=== PATIENT | male | born 1955 | race Caucasian/White ===

== ENCOUNTER 2021-02-14 01:38 | Observation (INO) | payer MEDICARE, MEDICAID, SELFPAY ==
[2021-02-14] VITALS (7 sets, daily range): BP systolic 123–138; BP diastolic 76–87; PULSE 51–80; RESP 16–20; TEMP 36.1–36.9; O2SAT 96–100
--- NOTE | ~2021-02-14 | CT_ITS ---
EXAMINATION: CT chest abdomen pelvis w con DATE: 02/14/2021 02:47 INDICATION: Right chest pain. Fall. TECHNIQUE: Computed tomography (CT) of the chest, abdomen, and pelvis was performed with 100 mL Omnip aque 350 intravenous contrast. Automated exposure control and iterative reconstruction technique were employed. The dose-length product was 601.56 mGy-cm. COMPARISON: None FINDINGS: CHEST CT: The lungs demonstrate mild atelectasis. There are multiple old right rib fractures. Motion artifact d ecreases sensitivity and specificity for superimposed acute rib fracture. In the right lower lobe at the pleura abutting old rib fractures, there are airspace opacities, likely rounded atelectasis. No p leural effusion. The heart size is normal. There are coronary artery calcifications. There is a 3.1 x 2.2 cm pericardial cyst in the left infrahilar region. ABDOMEN/PELVIS CT: The liver, gallbladder, and spleen are normal. 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 The pancreatic d uct is mildly dilated. The common duct is dilated to 8 mm. There are masses in the adrenal glands rinku suring up to 4.2 cm on the right measuring soft tissue attenuation. There is cortical thinning of the kidneys. There are cysts in the kidneys measuring up to 4.8 cm on the right. There are no dilated lo ops of bowel. The appendix is not visualized. There are no pathologically enlarged lymph nodes. There is no free intraperitoneal fluid. There is mild lumbar spondylosis. IMPRESSION: 1. Airspace opacities in right lung lower lobe abutting old rib fractures, likely rounded atelectasis . Contusion is less likely. Motion artifact decreases sensitivity and specificity for acute rib fract ure. 2. Mildly dilated common duct and pancreatic duct without visible obstruction. Consider MRCP. 3. Bilateral adrenal masses measuring up to 4.2 cm on the right. In the absence of known malignancy, these findings are most likely adenomas. Abdomen CT without and with contrast is recommended. Reviewed, dictated and finalized at location A. IMPRESSION: 1. Airspace opacities in right lung lower lobe abutting old rib fractures, like ly rounded atelectasis. Contusion is less likely. Motion artifact decreases sen sitivity and specificity for acute rib fracture. 2. Mildly dilated common duct and pancreatic duct without visible obstruction. Consider MRCP. 3. Bilateral adrenal masses measuring up to 4.2 cm on the right. In the absence of known malignancy, these findings are most likely adenomas. Abdomen CT witho ut and with contrast is recommended.
--- NOTE | 2021-02-14 01:46 | PC.NURSE ---
i called [facility] to get information about the patient. the nurse that was taking care of him states that she does not know of any injury. he has been complaining of the pain since approx 1600. no other information.
--- NOTE | 2021-02-14 02:08 | ED.GENADULT ---
HPI - General Adult General Chief complaint: Unspecified Stated complaint: rib pain Time Seen by Provider: 02/14/21 01:40 History of Present Illness HPI narrative: Patient is a 65-year-old gentleman who presents the emergency department chief complaint of right-sided chest and right upper quadrant pain. Patient had a unknown trauma occurred at the [facility] and was complaining of pain in his right side of his chest and his right upper quadrant today they did a plain film x-ray of his chest that showed old rib fractures may be acute rib fractures and the patient continued to have pain so they decided to send the patient to the emergency department this evening for evaluation. Patient reports he has pain on the right side of his chest worse with inspiration it is improved with rest. Patient states that he had no head injury denies neck pain denies pain in any extremity. Related Data Allergies Allergy/AdvReac Type Severity Reaction Status Date / Time No Known Allergies Allergy Verified 09/20/18 09:58 Review of Systems Review of Systems: Narrative: A 10 system review of systems was completed on the patient and is negative except for what is stated in the HPI. Nursing and ancillary documentation was reviewed. PMFSH Comments Patient is a resident of an extended care facility Patient reports prior history of traumatic subdural hematoma and seizure disorder hypertension dysarthria hernia dysphagia cognitive communication deficit and bipolar disorder Exam Narrative: Exam Narrative: GENERAL: Well-appearing, well-nourished, and in no acute distress. HEAD: Normocephalic, atraumatic. EYES: PERRLA and EOMI. ENT: Nares clear, no rhinorrhea or epistaxis. Mucous membranes moist. NECK: Supple. CHEST: Clear to auscultation. No respiratory distress. There is tenderness to palpation on the right anterior chest wall HEART: Regular rate and rhythm. No murmur heard. Normal peripheral pulses. ABDOMEN: Soft, there is tenderness to palpation in the right upper quadrant, nondistended, normal active bowel sounds. EXTREMITIES: Normal range of motion. No edema. SKIN: Warm, dry, no rash. NEURO: No focal deficits. Alert and oriented x3. PSYCH: Normal mood and affect. Course Course Emergency Course: CT scan of the chest abdomen pelvis showed a posterior lateral seventh and eighth rib fracture with a small localized density structure which could represent pleural fluid versus hematoma. The case was discussed with Dr. Trinidad who is on-call for general surgery who will be available for consultation The case was discussed with Dr. Cornejo of the hospitalist service, and the patient will be admitted to the hospitalist service Vital Signs Vital signs: Vital Signs Temperature 36.6 C 02/14/21 01:41 Pulse Rate 59 L 02/14/21 01:41 Respiratory Rate 16 02/14/21 01:41 Blood Pressure 124/84 02/14/21 01:41 Pulse Oximetry 100 02/14/21 01:41 Temperature 36.6 C 02/14/21 01:41 Pulse Rate 61 02/14/21 04:16 Respiratory Rate 16 02/14/21 04:16 Blood Pressure 138/84 02/14/21 04:16 Pulse Oximetry 100 02/14/21 04:16 Medical Decision Making Vital Signs Vital Signs: Vital Signs Temperature 36.6 C 02/14/21 01:41 Pulse Rate 59 L 02/14/21 01:41 Respiratory Rate 16 02/14/21 01:41 Blood Pressure 124/84 02/14/21 01:41 Pulse Oximetry 100 02/14/21 01:41 Temperature 36.6 C 02/14/21 01:41 Pulse Rate 61 02/14/21 04:16 Respiratory Rate 16 02/14/21 04:16 Blood Pressure 138/84 02/14/21 04:16 Pulse Oximetry 100 02/14/21 04:16 Lab Data Result diagrams: 02/14/21 02:25 02/14/21 02:37 Labs: Lab Results 02/14/21 02/14/21 02/14/21 Range/Units 02:25 02:25 02:37 WBC 7.9 (4.5-10.0) K/mm3 RBC 3.62 L (4.6-6.20) M/mm3 Hgb 11.7 L (14.0-18.0) g/dL Hct 34.4 L (42.0-52.0) % MCV 95.0 (80-100) fl MCH 32.3 (26-34) pg MCHC 34.0 (32-36) g/dl RDW 1
[2021-02-14 02:44] LABS: Basophils Absolute Auto 0.1 K/mm3 (0.0-0.1); Basophils Percent Auto 0.6 % (0.2-1.2); Eosinophils Absolute Auto 0.3 K/mm3 (0-0.3); Eosinophils Percent Auto 3.3 % (0-4.4); Hematocrit 34.4 % (42.0-52.0); Hemoglobin 11.7 g/dL (14.0-18.0); Immature Granulocyte Absolute 0.01 K/mm3 (0.00-0.031); Immature Granulocyte Percent A 0.1 % (0-0.5); Lymphocytes Absolute Auto 3.64 K/mm3 (0.9-3.2); Lymphocytes Percent Auto 45.9 % (18.3-44.2); Mean Corpuscular Hemoglobin 32.3 pg (26-34); Mean Platelet Volume 9.8 fl (7.4-10.4); Monocytes Absolute Auto 0.8 K/mm3 (0.1-0.6); Monocytes Percent Auto 10.1 % (2.6-8.5); Neutrophils Absolute Auto 3.2 K/mm3 (1.3-6.7); Platelet Count Result 355 k/mm3 (150-375); Red Blood Count 3.62 M/mm3 (4.6-6.20); Red Cell Distribution Width 13.4 % (11.5-14.5); White Blood Count 7.9 K/mm3 (4.5-10.0)
[2021-02-14 02:46] LABS: Alanine Aminotransferase 21 U/L (4-50); Albumin Level 4.1 g/dL (3.5-5.1); Alkaline Phosphatase 53 U/L (38-126); Anion Gap 4 mmol/L (8-16); Aspartate Amino Transferase 25 U/L (17-59); Bilirubin,Total 0.1 mg/dL (0.2-1.3); Blood Urea Nitrogen 16 mg/dL (9-20); Calcium 9.5 mg/dL (8.4-10.2); Carbon Dioxide 30 mmol/L (22-30); Chloride 102 mmol/L (98-107); Estimated CRCL calculation 67 ml/min; Estimated Glomerular Filt Rate > 60; Glucose 100 mg/dL (75-110); Potassium 4.2 mmol/L (3.4-5.0); Sodium 136 mmol/L (137-145)
[2021-02-14 03:01] LABS: Estimated CRCL calculation 60 ml/min; Estimated Glomerular Filt Rate > 60
[2021-02-14] MEDS: MORPHINE SULFATE (*CRX) 4 MG/ML INJ IV PUSH ×2 (03:52→05:30)
--- NOTE | 2021-02-14 04:42 | PM.IMHP ---
H&P: HPI History of Present Illness Date/Time: 02/14/21 04:42 Chief Complaint: Right sided pleuritic chest pain+ Narrative: This is a 65 year old male with known history of previous traumatic subdural hemorrhage, epilepsy, chronic hypertension, and chronic dysarthria among other comorbidities who presented to the hospital today with complaint of right-sided chest discomfort. Apparently the patient suffered a fall yesterday. When questioned about this the patient states he does not remember any details of his fall. While in the emergency room this evening the patient has had pleuritic right-sided chest pain. Patient denies any other significant symptoms such as headache, head trauma, loss of consciousness, nausea, vomiting, belly pain, dysuria, hematuria, diarrhea, hemoptysis, or cough. CT scan of chest abdomen pelvis revealed a posterior lateral seventh and eighth rib fracture with a small localized density structure which could represent pleural fluid versus hematoma. ER provider has consulted general surgeon, Dr. Trinidad who has asked that we admit the patient to the hospital and surgery will manage the patient's hematoma. On my encounter with the patient destiny his only complaint is right-sided chest discomfort which is exacerbated with any movement. On review the patient's medication list he is not on any anticoagulants. Review of Systems Review of Systems: All systems reviewed & are unremarkable except as noted in HPI and below PMFSH Past Medical History Medical History Asthma Bipolar disorder Chronic hypertension Dysarthria Epilepsy Insomnia Traumatic subdural hemorrhage Social History Social History Smoking status: Never smoker Alcohol intake: never Substance use: never Gender identity (if verbalized by the patient): Male Sexual Orientation (if Verbalized by the Patient): Straight or Heterosexual Spiritual care concerns: No Comments Family and surgical history is unknown to the patient. Meds Home Medications and Allergies Home Medications Medication Instructions Recorded Confirmed Type acetaminophen [Tylenol] 650 mg PO Q6-12H PRN 02/14/21 02/14/21 History acetaminophen-codeine 1 tablet PO TID PRN 02/14/21 02/14/21 History buspirone 10 mg PO QAM AND QHS 02/14/21 02/14/21 History hydrocodone-acetaminophen 1 tablet PO TID PRN 02/14/21 02/14/21 History levetiracetam 750 mg PO BID 02/14/21 02/14/21 History lisinopril 20 mg PO DAILY 02/14/21 02/14/21 History lorazepam 1 mg PO TID 02/14/21 02/14/21 History melatonin 6 mg PO HS PRN 02/14/21 02/14/21 History meloxicam 15 mg PO DAILY 02/14/21 02/14/21 History olanzapine 15 mg PO DAILY 02/14/21 02/14/21 History quetiapine 25 mg PO QNOON 02/14/21 02/14/21 History quetiapine 50 mg PO BID 02/14/21 02/14/21 History Allergies Allergy/AdvReac Type Severity Reaction Status Date / Time No Known Allergies Allergy Verified 02/14/21 06:03 Vital Signs Vital Signs - 24 hr 02/14/21 01:41 02/14/21 02:46 02/14/21 04:16 Temperature 36.6 C Pulse Rate 59 L 61 Respiratory Rate 16 16 16 Blood Pressure 124/84 138/84 Pulse Oximetry 100 100 Exam Const: General: cooperative, alert, awake and in distress (Right lateral chest wall pain+ ) moderate Nutritional Appearance: thin Orientation/consciousness: oriented to person and oriented to place HENMT: Head: normal to inspection General nose exam: Normal external nose present Face and sinus: normal facial exam Mouth: Yes Normal oral and palatal mucosa present and Yes oropharynx normal Eyes: Pupils: Equal, round and reactive pupils present EOM: EOMs intact bilaterally Neck: Neck: supple and no JVD Thyroid: thyroid normal Lymphatic: lymphadenopathy not noted Chest: Other: R lateral/posterior chest wall tenderness w/ palpation++ Resp: Effort & Inspection: normal respiratory effort Ausculta
--- NOTE | 2021-02-14 04:52 | PC.NURSE ---
report called to [facility] jeron[facility]. pt is being admitted
--- NOTE | 2021-02-14 05:20 | ADMGEN ---
This patient, Ramin Sarkar, was admitted to [facility] Surg Room 305-01. Patient/family oriented to hospital policies and general routines including ID bracelet, bed and alarms, visiting hours, pain management, procedures, bathroom and other care routines, personal items, smoking policy, room service/diet, and visiting hours. Information on how to activate the Rapid Response Team has been discussed. Patient/Family are encouraged to report perceived risks to care and to ask questions if they do not understand what they are told or what they should do.
[2021-02-14] MEDS: HYDROcodone/acetaminophen (*CRX) 5-325 MG TABLET 1 TAB PO ×2 (08:30→16:49)
[2021-02-14] MEDS: QUEtiapine FUMARATE 25 MG TABLET 50 MG PO ×2 (08:55→16:46)
[2021-02-14] MEDS: busPIRone HCL 10 MG TABLET PO ×2 (08:55→19:53)
[2021-02-14] MEDS: lisinopriL 20 MG TABLET PO (08:56)
[2021-02-14] MEDS: levETIRAcetam 250 MG TABLET 750 MG PO ×2 (08:56→19:52)
--- NOTE | 2021-02-14 11:47 | PM.CNGS ---
Assessment and Plan Assessment and plan (1) Fracture, ribs: Qualifiers: Encounter type: initial encounter Fracture type: closed Laterality: right Qualified Code(s): S22.41XA - Multiple fractures of ribs, right side, initial encounter for closed fracture Code(s): S22.49XA - Multiple fractures of ribs, unspecified side, initial encounter for closed fracture Status: Acute Assessment and Plan: Uncomplicated rib fractures probably acute even though motion artifact makes the CT reading more difficult. I have also reviewed the CT scan independently. There is no right chest hemathorax or pleural effusion. The abnormalities are likely some pleural thickening associated with the rib fractures and some atelectasis. Recommend pain management and monitoring for pulmonary contusion. Can be discharged when patient comfortable on oral analgesics. No need for serial chest x-rays, chest tube, thoracentesis or other interventions/evaluations regarding the abnormalities discussed in the teleradiology report. Will sign off. History of Present Illness Consult details Consult date: 02/14/21 Reason for consult: other ( Right-sided chest pain from fall, possible hemothorax.) Requesting physician: Avery Flanagan MD Narrative: Patient is a 65-year-old gentleman who resides in an extended care facility. He had been complaining of right-sided chest and right upper quadrant abdominal pain at his nursing facility. Plain films done there showed old rib fractures that may be acute or chronic. The patient was continuing to have pain and was sent to the emergency room. CT scan done early this morning and read by Teleradiology identified fractures of the 7th and 8th ribs with adjoining small localized density structure which could represent pleural fluid or hematoma. There was motion artifact obscuring the imaging. The patient was admitted for pain control, management of rib fractures and possible pulmonary contusion. I was asked to see the patient for potential hemothorax. CT scan reviewed by our radiologist do not clearly identify any acute rib fractures although with the clinical history it seems that there are acute rib fractures. No hemo thorax is identified. The abnormality noted by the tele radiologist is felt to be atelectasis or possibly contusion. The patient is seen now in consultation regarding the CT of the chest abnormalities. Review of Systems Review of Systems: All systems reviewed & are unremarkable except as noted in HPI and below Constitutional: Constitutional: Denies chills and Denies fever(s) Cardiovascular: Cardiovascular: Reports chest pain ( Right lateral lower chest), Denies diaphoresis, Denies dyspnea and Denies paroxysmal nocturnal dyspnea Respiratory: Respiratory: Denies chest congestion, Denies cough and Denies dyspnea Integumentary/Breasts: Skin/Breast: Denies lesions and Denies rash PMFSH Past Medical History Medical History Asthma Bipolar disorder Chronic hypertension Dysarthria Epilepsy Insomnia Traumatic subdural hemorrhage Social History Social History Smoking status: Never smoker Alcohol intake: never Substance use: never Gender identity (if verbalized by the patient): Male Sexual Orientation (if Verbalized by the Patient): Straight or Heterosexual Spiritual care concerns: No Meds Home Medications and Allergies Home Medications Medication Instructions Recorded Confirmed Type acetaminophen [Tylenol] 650 mg PO Q6-12H PRN 02/14/21 02/14/21 History acetaminophen-codeine 1 tablet PO TID PRN 02/14/21 02/14/21 History buspirone 10 mg PO QAM AND QHS 02/14/21 02/14/21 History hydrocodone-acetaminophen 1 tablet PO TID PRN 02/14/21 02/14/21 History levetiracetam 750 mg PO BID 02/14/21 02/14/21 History lisinopril 20 mg PO DAILY 02/14/21 02/14/21 History lorazepam 1 mg P
[2021-02-14] MEDS: QUEtiapine FUMARATE 25 MG TABLET PO (13:50)
[2021-02-14] MEDS: MORPHINE SULFATE (*CRX) 2 MG/ML INJ IV PUSH ×2 (13:51→19:52)
[2021-02-14] MEDS: LORazepam (*CRX) 1 MG TABLET PO ×2 (13:51→19:53)
--- NOTE | 2021-02-14 15:03 | PM.IMPN ---
Progress Note: A&P Assessment and Plan (1) Fracture, ribs: Qualifiers: Encounter type: initial encounter Fracture type: closed Laterality: right Qualified Code(s): S22.41XA - Multiple fractures of ribs, right side, initial encounter for closed fracture Code(s): S22.49XA - Multiple fractures of ribs, unspecified side, initial encounter for closed fracture Status: Acute Assessment and Plan: Right rib fractures probably acute although difficult to discern due to motion artifact on imaging. Continue pain control and encourage incentive spirometry. There was questionable abnormality on imaging initially concerning for possible hemothorax or pleural effusion, general surgery was consulted and after further review of the images, abnormalities may be related to pleural thickening associated with the rib fractures no further intervention is needed at this time. Awaiting COVID testing for discharge back to [place]. (2) Normocytic anemia: Code(s): D64.9 - Anemia, unspecified Status: Acute Assessment and Plan: Chronic on review of previous labs. No evidence of acute bleeding at present, no ecchymosis or hematoma noted on exam. Monitor CBC. (3) Dysarthria: Code(s): R47.1 - Dysarthria and anarthria Status: Chronic Assessment and Plan: Secondary to previous CVA. Chronic. (4) Chronic hypertension: Code(s): I10 - Essential (primary) hypertension Status: Chronic Assessment and Plan: Stable, last 123/, maintained on his home lisinopril. (5) Epilepsy: Qualifiers: Epilepsy type: unspecified Intractability: not intractable Status epilepticus: without status epilepticus Qualified Code(s): G40.909 - Epilepsy, unspecified, not intractable, without status epilepticus Code(s): G40.909 - Epilepsy, unspecified, not intractable, without status epilepticus Status: Chronic Assessment and Plan: Continue Keppra. (6) Asthma: Qualifiers: Asthma severity: unspecified severity Asthma persistence: unspecified Asthma complication type: unspecified Qualified Code(s): J45.909 - Unspecified asthma, uncomplicated Code(s): J45.909 - Unspecified asthma, uncomplicated Status: Chronic Assessment and Plan: Stable without evidence of respiratory distress. Bronchodilators PRN. (7) Bipolar disorder: Qualifiers: Active/Remission status: remission status unspecified Qualified Code(s): F31.9 - Bipolar disorder, unspecified Code(s): F31.9 - Bipolar disorder, unspecified Status: Chronic Assessment and Plan: Continue home regimen with Seroquel and olanzapine, lorazepam. Subjective Date/time seen: 02/14/21 1330 Interval history: Mr. Sarkar is a 65yo M with history of prior CVA with chronic dysarthria admitted for right-sided chest discomfort after a reported fall at the [facility] although the history is a bit unclear. He is able to answer most questions but some of his answers are difficult to understand. He reports right lower rib pain 7 out of 10 severity. Denies shortness of breath, nausea or vomiting. RN noted to me he was anxious earlier this morning but he seems improved now, comfortable. Review of Systems Review of Systems: All systems reviewed & are unremarkable except as noted in HPI and below Exam Narrative: Exam Narrative: General: Male resting comfortably sitting up in bed in no acute distress. HEENT: Normocephalic, EOMI, oral mucosa moist. Cardiovascular: Rate and rhythm are regular. Chest: Lungs clear to auscultation bilaterally. Respirations even and non-labored
[2021-02-15] MEDS: MORPHINE SULFATE (*CRX) 2 MG/ML INJ IV PUSH (04:48)
[2021-02-15 05:50] VITALS: BP 107/72; PULSE 60; RESP 16; TEMP 36.3; O2SAT 100
[2021-02-15 06:18] LABS: Basophils Absolute Auto 0.1 K/mm3 (0.0-0.1); Basophils Percent Auto 0.6 % (0.2-1.2); Eosinophils Absolute Auto 0.2 K/mm3 (0-0.3); Eosinophils Percent Auto 1.9 % (0-4.4); Hemoglobin 13.6 g/dL (14.0-18.0); Immature Granulocyte Absolute 0.02 K/mm3 (0.00-0.031); Immature Granulocyte Percent A 0.2 % (0-0.5); Lymphocytes Absolute Auto 2.36 K/mm3 (0.9-3.2); Mean Corpuscular HGB Conc 33.2 g/dl (32-36); Mean Corpuscular Hemoglobin 32.2 pg (26-34); Mean Corpuscular Volume 97.2 fl (80-100); Mean Platelet Volume 9.7 fl (7.4-10.4); Monocytes Percent Auto 10.9 % (2.6-8.5); Neutrophils Absolute Auto 5.2 K/mm3 (1.3-6.7); Neutrophils Percent Auto 59.4 % (45.5-73.1); Platelet Count Result 388 k/mm3 (150-375); Red Blood Count 4.22 M/mm3 (4.6-6.20); Red Cell Distribution Width 13.7 % (11.5-14.5); White Blood Count 8.8 K/mm3 (4.5-10.0)
[2021-02-15 06:35] LABS: Anion Gap 5 mmol/L (8-16); Blood Urea Nitrogen 17 mg/dL (9-20); Calcium 9.3 mg/dL (8.4-10.2); Carbon Dioxide 28 mmol/L (22-30); Chloride 102 mmol/L (98-107); Estimated CRCL calculation 87 ml/min; Estimated Glomerular Filt Rate > 60; Glucose 92 mg/dL (75-110); Magnesium 2.1 mg/dL (1.6-2.3); Potassium 4.2 mmol/L (3.4-5.0); Sodium 135 mmol/L (137-145)
[2021-02-15] MEDS: busPIRone HCL 10 MG TABLET PO (08:04)
[2021-02-15] MEDS: levETIRAcetam 250 MG TABLET 750 MG PO ×2 (08:04→21:11)
[2021-02-15] MEDS: QUEtiapine FUMARATE 25 MG TABLET 50 MG PO ×2 (08:04→17:08)
[2021-02-15] MEDS: lisinopriL 20 MG TABLET PO (08:05)
[2021-02-15] MEDS: HYDROcodone/acetaminophen (*CRX) 5-325 MG TABLET 1 TAB PO ×2 (08:05→14:00)
[2021-02-15] MEDS: QUEtiapine FUMARATE 25 MG TABLET PO (12:00)
[2021-02-15 14:00] VITALS: BP 112/73; PULSE 73; RESP 22; TEMP 36.5; O2SAT 98
--- NOTE | 2021-02-15 14:52 | PM.DS ---
DS: Admitting Diagnosis Admitting Diagnosis Admitting Diagnosis: Rib fractures DS: Discharge Diagnosis Discharge Diagnosis (1) Fracture, ribs: Qualifiers: Encounter type: initial encounter Fracture type: closed Laterality: right Qualified Code(s): S22.41XA - Multiple fractures of ribs, right side, initial encounter for closed fracture Code(s): S22.49XA - Multiple fractures of ribs, unspecified side, initial encounter for closed fracture Status: Acute Assessment and Plan: Date of Admission 02/14/21 Date of Discharge 02/15/21 Mr. Sarkar is a 65-year-old male with history of previous traumatic subdural hemorrhage with residual chronic dysarthria, epilepsy, chronic hypertension, bipolar disorder, and chronic anemia who presented to the ED for evaluation of right-sided rib pain. He is known to be a longterm resident of [facility]; reportedly had an unknown injury and was complaining of pain to the right side of his chest. [facility] reportedly obtained chest XR that showed chronic rib fractures, possible acute rib fractures and the patient continued to have pain so he was sent to the ED. CT chest/abdomen/pelvis demonstrated airspace opacities in the right lower lung abutting old rib fractures, likely rounded atelectasis; A contusion is less likely, motion artifact decreases sensitivity and specificity for acute rib fracture. General surgery was consulted because initially on imaging there was concern for possible hemothorax or pleural effusion. He was evaluated by Dr. Trinidad who recommended the abnormalities on imaging in question may be related to pleural thickening associated with the rib fractures, no hemothorax or pleural effusion were present, and no further interventions/evaluations regarding the abnormalities were necessary at this time. He was treated with supportive care to include pain control for his rib fractures, incentive spirometry. He is not having any shortness of breath and his oxygen saturations are adequate on room air. He is hemodynamically stable for discharge on 02/15/2021 to be seen by [facility] provider ideally within 1 week. Incidental abnormality on CT - bilateral adrenal masses detailed below. Follow-up with PCP, consider further imaging for evaluation if patient desires. Dilated common bile duct noted on imaging - patient's LFTs and bilirubin are normal, tolerating meals without nausea, vomiting, or abdominal pain. Can be monitored outpatient. Right rib fractures probably acute given his pain although difficult to discern chronicity due to motion artifact on imaging. Continue pain control and encourage incentive spirometry. Discharged to continue his home pain regimen that includes Tylenol #3, Lyle. There was questionable abnormality on imaging initially concerning for possible hemothorax or pleural effusion, general surgery was consulted and after further review of the images, abnormalities may be related to pleural thickening associated with the rib fractures no further intervention is needed at this time. Awaiting COVID testing for discharge back to [facility]. (2) Normocytic anemia: Code(s): D64.9 - Anemia, unspecified Status: Acute Assessment and Plan: Chronic on review of previous labs. No evidence of acute bleeding at present, no ecchymosis or hematoma noted on exam. (3) Dysarthria: Code(s): R47.1 - Dysarthria and anarthria Status: Chronic Assessment and Plan: Secondary to previous CVA. Chronic. (4) Chronic hypertension: Code(s): I10 - Essential (primary) hypertension Status: Chronic Assessment and Plan: Blood pressures have remained stable maintained on his home lisinopril. (5) Epilepsy:
[2021-02-15] MEDS: ACETAMINOPHEN 325 MG TABLET 650 MG PO (17:08)
--- NOTE | 2021-02-15 19:26 | PC.NURSE ---
Report called to Luz at [facility].
[2021-02-15 19:57] LABS: SARS-CoV-2 RNA PCR Negative
--- NOTE | 2021-02-15 21:21 | PC.NURSE ---
2100, Patient's covid test to return to [facility] came back negative. This RN called [facility] nurse, and asked about transport for [facility]. Was told that they have no transport for tonight but transporter comes in around 0500 and to call back then regarding discharge back to them.
[2021-02-15 21:41] VITALS: BP 111/70; PULSE 71; RESP 18; TEMP 36.8; O2SAT 96
[2021-02-16 05:46] VITALS: BP 108/77; PULSE 67; RESP 18; TEMP 36.7; O2SAT 96
--- NOTE | 2021-02-16 05:50 | PC.NURSE ---
0530 Called [facility] regarding transport for patient to discharge back to facility. Night nurse informed this RN that transport actually does not arrive to the facility until 0800. Night nurse said they would pass on to day shift to call regarding transport around 0800.
[2021-02-16] MEDS: ACETAMINOPHEN 325 MG TABLET 650 MG PO (06:42)
[2021-02-16] MEDS: QUEtiapine FUMARATE 25 MG TABLET 50 MG PO (08:48)
[2021-02-16] MEDS: busPIRone HCL 10 MG TABLET PO (08:48)
[2021-02-16] MEDS: HYDROcodone/acetaminophen (*CRX) 5-325 MG TABLET 1 TAB PO (08:49)
[2021-02-16] MEDS: lisinopriL 20 MG TABLET PO (08:49)
[2021-02-16] MEDS: levETIRAcetam 250 MG TABLET 750 MG PO (08:49)
== END 2021-02-16 09:15 ==
LOC: ANHED 04:24 → ANH3MEDSUR 04:44
PROVIDERS: Physician Assistant; Admitting Provider Family Medicine; Emergency Provider Emergency Medicine; PCP Internal Medicine; Visit Provider Physician Assistant
DX: S22.41XA Multiple fractures of ribs, right side, initial encounter for closed fracture (principal); X58.XXXA Exposure to other specified factors, initial encounter; I10 Essential (primary) hypertension; D64.9 Anemia, unspecified; F31.9 Bipolar disorder, unspecified; G40.909 Epilepsy, unspecified, not intractable, without status epilepticus; I69.822 Dysarthria following other cerebrovascular disease; J45.909 Unspecified asthma, uncomplicated
CPT/HCPCS: 36415; 71260; 74177; 80048; 80053; 83735; 85025; 96374; 96376; 99285; A9270; C9803; G0378; J2270; Q9967; U0003; U0005

== ENCOUNTER 2022-09-05 12:35 | Inpatient (IN) | payer MEDICARE, MEDICAID, SELFPAY ==
[2022-09-05] VITALS (66 sets, daily range): BP systolic 65–92; BP diastolic 41–69; PULSE 55–84; RESP 8–23; TEMP 36.3–36.7; O2SAT 96–100; BMI 21.4
--- NOTE | ~2022-09-05 | US_ITS ---
EXAMINATION: US renal BI DATE: 09/05/2022 16:57 INDICATION: Acute kidney injury TECHNIQUE: Multiple grayscale and Doppler ultrasound images of the kidneys were obtained. COMPARISON: CT, 02/14/2021 FINDINGS: The right kidney measures 12.9 x 5.5 x 6.2 cm and contains a 5.0 cm cyst. The left kidney m easures 11.7 x 7.1 x 5.3 cm. The kidneys demonstrate normal parenchymal echogenicity. Incidental note is made of a right adrenal mass, consistent with an adenoma. There is no hydronephrosis. The bladder is decompressed by Hansen catheter. IMPRESSION: 1. Unremarkable kidneys without hydronephrosis. Reviewed, dictated and finalized at location F. ILLERY SUPERVISOR
--- NOTE | ~2022-09-05 | XR_ITS ---
EXAMINATION: XR hip BI 2V w AP pelvis DATE: 09/05/2022 16:36 INDICATION: Hip and low back pain after fall TECHNIQUE: AP view the pelvis and two views of each hip were obtained. COMPARISON: 09/15/2010 FINDINGS: Bone alignment is normal. There is no fracture. There is mild osteoarthritis of the hips. IMPRESSION: 1. No acute osseous abnormality. Reviewed, dictated and finalized at location F. ATIONS VOCATIONAL INSTRUCTOR
--- NOTE | ~2022-09-05 | CT_ITS ---
EXAMINATION: CT brain wo con DATE: 09/05/2022 13:26 INDICATION: Fall. History of cerebrovascular accident, seizures, epilepsy. Hypertension. TECHNIQUE: Computed tomography (CT) of the head was performed without intravenous contrast. The mA wa s adjusted according to patient size. Iterative reconstruction technique was employed. Exam dose: 60 5.33 mGy-cm total exam DLP. COMPARISON: 09/20/2018 CT brain FINDINGS: Again noted is very prominent asymmetric dilatation of the right temporal and occipital hor ns of the lateral ventricle consistent with chronic right temporal and occipital atrophy. Focal chron ic infarct high over the right cerebral convexity. Prominent central and cortical cerebral atrophy and moderately prominent cerebellar atrophy. No intracranial mass lesion or hemorrhage or recent cerebrovascular accident. No midline shift or mas s effect effect. No subdural or epidural hematoma. No orbital mass lesion. Extensive opacification of left mastoid air cells. Right mastoid air cells are normally developed and aerated. Included paranasal sinuses are unremarkable. No fracture or bone destruction of the cranial vault. IMPRESSION: Stable chronic central and cortical cerebral atrophy, severe and asymmetric in the right temporal and occipital regions, without significant change since 09/20/2018 Small focal infarct high over the right parietal convexity, also stable No acute intracranial finding Chronic left mastoid effusions Reviewed, dictated and finalized at Location A. Reviewed, dictated and finalized at location A. FINISHER IMPRESSION: Stable chronic central and cortical cerebral atrophy, severe and a symmetric in the right temporal and occipital regions, without significant [place] ge since 09/20/2018 Small focal infarct high over the right parietal convexity, also stable No acute intracranial finding Chronic left mastoid effusions
--- NOTE | ~2022-09-05 | CT_ITS ---
EXAMINATION: CT lumbar spine wo con DATE: 09/05/2022 16:14 INDICATION: Low back pain post fall TECHNIQUE: Computed tomography (CT) of the lumbar spine was performed without intravenous contrast. A utomated exposure control and iterative reconstruction technique were employed. The dose-length produ ct was 840.52 mGy-cm. COMPARISON: Lumbar spine radiographs dated 09/15/[address] abdomen and pelvis dated 02/14/2021 FINDINGS: 11 degree. lumbar dextrocurvature. Sagittal alignment is normal. Relatively acute appearing T12 and L 1 burst fractures with 50% anterior vertebral body height loss and 2 mm retropulsion at T12 and 3 mm retropulsion at L1. Remaining vertebral body heights are normal. There is vacuum phenomena and mild b allooning of the T11-T12 and T12-L1 disc spaces. Remaining discs are normal. Bilateral low-attenuatio n adrenal adenomas measuring 5.0 x 2.8 cm on the right and 3.4 x 2.5 cm on the left. The common bile duct is dilated to 9 mm in the main pancreatic duct is dilated to 3.5 mm at the head of the pancreas. No evident obstructing lesion. Partially visualized 4.5 cm right renal cyst. 8 mm partially exophyti c lesion at the posterior medial upper pole of the right kidney equivocal for solid neoplasm versus c omplex cyst. The following disc levels are specifically discussed: T11-T12: Minimal central canal stenosis resulting from the retropulsion of T12. There is mild bilater al facet joint osteoarthritis. There is no neural foraminal stenosis. T12-L1: Mild central canal stenosis resulting from the retropulsion of L1. There is mild bilateral fa cet joint osteoarthritis. There is no neural foraminal stenosis. L1-L2: Disc is mildly bulging. There is moderate right and minimal left facet joint osteoarthritis. T here is minimal bilateral neural foraminal stenosis. There is mild central canal stenosis. L2-L3: Disc is mildly bulging. There is mild right and minimal left facet joint osteoarthritis. There is mild bilateral neural foraminal stenosis. There is minimal central canal stenosis. L3-L4: Disc is minimally bulging. There is mild bilateral facet joint osteoarthritis. There is mild r ight and minimal left neural foraminal stenosis. There is no central canal stenosis. L4-L5: Disc is mildly bulging. There is mild bilateral facet joint osteoarthritis. There is moderate right and mild to moderate left neural foraminal stenosis. There is minimal central canal stenosis. L5-S1: Left foraminal zone disc protrusion. There is mild bilateral facet joint osteoarthritis. There is minimal bilateral neural foraminal stenosis. There is no central canal stenosis. IMPRESSION: 1. Relatively acute appearing T12 and L1 burst fractures. 2. Minimal to mild lumbar and lower thoracic spondylosis. 3. No significant change in an 8 mm indeterminate right renal lesion which could represent a solid ne oplasm including renal cell carcinoma versus complex cyst. Consider further evaluation with pre and p ostcontrast MRI. 4. Unchanged mild dilation of the common bile duct and main pancreatic duct without evident obstructi ng lesion. Consider MRCP for further evaluation. Reviewed, dictated and finalized at location B. WRIGHT APPRENTICE IMPRESSION: 1. Relatively acute appearing T12 and L1 burst fractures. 2. Minimal to mild lumbar and lower thoracic spondylosis. 3. No significant change in an 8 mm indeterminate right renal lesion which coul d represent a solid neoplasm including renal cell carcinoma versus complex cyst . Consider further evaluation with pre and postcontrast MRI. 4. Unchanged mild dilation of the common bile duct and main pancreatic duct wit hout evident obstructing lesion. Consider MRCP for further evaluation.
--- NOTE | ~2022-09-05 | XR_ITS ---
EXAMINATION: XR chest 1V portable INDICATION: Hypotension TECHNIQUE: Portable AP chest at 2154 hours COMPARISON: 09/15/2010 FINDINGS: There are minimal airspace opacities of the lung bases. No pleural effusion or pneumothorax . The cardiomediastinal silhouette is normal. IMPRESSION: 1. Minimal airspace opacities of the lung bases, consistent with atelectasis versus pneumonia. Reviewed, dictated and finalized at location F. TER EDUCATION TEACHER IMPRESSION: 1. Minimal airspace opacities of the lung bases, consistent with atelectasis ve rsus pneumonia.
--- NOTE | ~2022-09-05 | CT_ITS ---
EXAMINATION: CT cervical spine wo con DATE: 09/05/2022 13:26 INDICATION: Neck injury. TECHNIQUE: Computed tomography (CT) of the cervical spine was performed without intravenous contrast. Automated exposure control and iterative reconstruction technique were employed. The dose-length pro duct was 150.49 mGy-cm. COMPARISON: CT cervical spine 09/11/2010 FINDINGS: There is a left mastoid effusion. There is partial opacification of left tympanic cavity wi th erosions of the ossicles, consistent with chronic otitis media. Bone alignment is normal. Vertebra l body heights are normal. There is mildly decreased disc height at C3-C4 and moderately decreased di sc height at C5-C6. The following disc levels are specifically discussed: C2-C3: There is no uncovertebral joint osteoarthritis. There is mild left facet joint osteoarthritis. There is no neural foraminal stenosis. There is no central canal stenosis. C3-C4: There is severe right and mild left uncovertebral joint osteoarthritis. There is mild right fa cet joint osteoarthritis. There is moderate left neural foraminal stenosis. There is no central canal stenosis. C4-C5: There is mild bilateral uncovertebral joint osteoarthritis. There is mild left facet joint ost eoarthritis. There is no neural foraminal stenosis. There is no central canal stenosis. C5-C6: There is moderate left uncovertebral joint osteoarthritis. There is mild left facet joint oste oarthritis. There is mild left neural foraminal stenosis. There is mild central canal stenosis. C6-C7: There is no uncovertebral joint osteoarthritis. There is no facet joint osteoarthritis. There is no neural foraminal stenosis. There is no central canal stenosis. C7-T1: There is no uncovertebral joint osteoarthritis. There is mild bilateral facet joint osteoarthr itis. There is no neural foraminal stenosis. There is no central canal stenosis. IMPRESSION: 1. No fracture. 2. Moderate cervical spondylosis. Reviewed, dictated and finalized at location A. R
--- NOTE | 2022-09-05 12:52 | ECG_ITS ---
Measurements Intervals [place] Rate: 82 P: 65 [place]: 173 QRS: 71 QRSD: 104 T: 77 QT: 351 QTc: 412 Interpretive Statements SINUS RHYTHM DELAYED PRECORDIAL R/S TRANSITION MINIMAL Q WAVES- INF/LAT LEADS BORDERLINE ECG NO PREVIOUS ECG AVAILABLE FOR COMPARISON Electronically Signed On 09-05-2022 14:42:33 RESIDENTIAL DOOR INSTALLER by Adria Johnston D.O.
[2022-09-05] MEDS: SODIUM CHLORIDE 0.9% IV 1,000 ML 1000 ML (13:00)
--- NOTE | 2022-09-05 13:00 | ED.FALL ---
HPI - Fall General Chief Complaint: Fall Stated Complaint: glf x 2, lac to chin and neck, bp 70/40 Time Seen by Provider: 09/05/22 12:38 History of Present Illness HPI Narrative: Pt fell two time at local NH today. Pt struck his chin on stand on last fall. Pt complains of MORENO. Pt denies LOC. Pt SBP 52 here. Pt denies abdominal or chest pain. Related Data Home Medications Medication Instructions Recorded Confirmed acetaminophen 325 mg capsule 650 mg PO Q6H PRN Pain (Scale 02/14/21 09/05/22 (Tylenol) Score 1-3) buspirone 10 mg tablet 10 mg PO Q12H bipolar 02/14/21 09/05/22 levetiracetam 750 mg tablet 750 mg PO BID 02/14/21 09/05/22 lisinopril 20 mg tablet 20 mg PO DAILY 02/14/21 09/05/22 melatonin 3 mg tablet 6 mg PO HS PRN Sleep 02/14/21 09/05/22 meloxicam 15 mg tablet 15 mg PO DAILY 02/14/21 09/05/22 olanzapine 15 mg tablet 15 mg PO DAILY 02/14/21 09/05/22 acetaminophen 500 mg capsule 500 mg PO TID 09/05/22 09/05/22 hydrocodone 5 mg-acetaminophen 325 1 tablet PO HS 09/05/22 09/05/22 mg tablet lorazepam 1 mg tablet 1 mg PO 08,12,08 PRN anxiety 09/05/22 09/05/22 mecobalamin (vitamin B12) 1,000 1,000 mcg PO DAILY 09/05/22 09/05/22 mcg chewable tablet mirtazapine 15 mg tablet 15 mg PO HS 09/05/22 09/05/22 quetiapine 100 mg tablet 100 mg PO Q12H 09/05/22 09/05/22 Allergies Allergy/AdvReac Type Severity Reaction Status Date / Time No Known Allergies Allergy Verified 09/05/22 12:59 Review of Systems Review of Systems: All systems reviewed & are unremarkable except as noted in HPI and below PMFSH Past Medical History Medical History Asthma Bipolar disorder Chronic hypertension Dysarthria Epilepsy Insomnia Traumatic subdural hemorrhage Surgical History Surgical History (Updated 09/05/22 @ 21:22 by Kerri Contreras PA-C) History of inguinal hernia repair Family History Family History (Updated 09/05/22 @ 21:22 by Kerri Contreras PA-C) Other Family history unknown Social History Social History (Updated 09/05/22 @ 21:23 by Kerri Contreras PA-C) Social History: Surrogate medical decision maker: Darnell Workman, friend. Emergency contact: Paige Machuca, niece. Code status: Do not resuscitate. Smoking status: Never smoker Alcohol intake: never Substance use: never Lack of Transportation: No Lack of Food: Never True Current Housing: Decline to Answer Concerned About Future Housing: Decline to Answer Difficulty Paying Gas/Electric Bills: Decline to Answer Difficulty Paying for Meds: Decline to Answer Currently Unemployed: Decline to Answer Education: Don't Know Difficulty w/ Childcare or Family Care: Decline to Answer Additional living arrangements comments: Resident at [facility]. 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 Spiritual care concerns: No Exam Const: General: healthy appearing Nutritional Appearance: thin Orientation/consciousness: patient oriented x3 Limitations: no limitations HENMT: Head: laceration (chin) Eyes: Pupils: Equal, round and reactive pupils present EOM: EOMs intact bilaterally Neck: Neck: normal visual inspection and no meningeal signs Other: no midline tenderness Resp: Effort & Inspection: normal respiratory effort Auscultation: clear to auscultation bilaterally Cardio: Rate: regular rate Rhythm: regular rhythm GI: Auscultation: normal bowel sounds Skin: General skin exam: normal color Rashes: no rashes Neuro: General: patient oriented x3, moves all extremities, no meningeal signs, no focal motor deficits and CN's II-XI intact bilaterally Speech: Abnormal speech present slurred (baseline) Extrem: General: normal to inspection and no clubbing, cyanosis or edema Psych: Mental Status: mental status grossly normal Affect: normal affect Attitude: cooperative Course Course Emergency Course: BP improved to 80's with f
[2022-09-05 13:04] LABS: Basophils Percent Auto 0.4 % (0.2-1.2); Eosinophils Absolute Auto 0.1 K/mm3 (0-0.3); Eosinophils Percent Auto 0.6 % (0-4.4); Hematocrit 37.6 % (42.0-52.0); Hemoglobin 12.8 g/dL (14.0-18.0); Immature Granulocyte Absolute 0.02 K/mm3 (0.00-0.031); Immature Granulocyte Percent A 0.3 % (0-0.5); Lymphocytes Absolute Auto 1.24 K/mm3 (0.9-3.2); Lymphocytes Percent Auto 15.9 % (18.3-44.2); Mean Corpuscular Hemoglobin 32.4 pg (26-34); Mean Corpuscular Volume 95.2 fl (80-100); Mean Platelet Volume 9.6 fl (7.4-10.4); Monocytes Percent Auto 12.6 % (2.6-8.5); Neutrophils Absolute Auto 5.5 K/mm3 (1.3-6.7); Neutrophils Percent Auto 70.2 % (45.5-73.1); Platelet Count Result 356 k/mm3 (150-375); Red Blood Count 3.95 M/mm3 (4.6-6.20); Red Cell Distribution Width 14.3 % (11.5-14.5); White Blood Count 7.8 K/mm3 (4.5-10.0)
[2022-09-05 13:20] LABS: Prothrombin Time 12.6 Seconds (11.1-14.7)
[2022-09-05 13:21] LABS: Partial Thromboplastin Time 28.2 SECONDS (22.3-36.8)
[2022-09-05 13:42] LABS: Alanine Aminotransferase 24 U/L (6-50); Albumin Level 4.2 g/dL (3.5-5.1); Alkaline Phosphatase 51 U/L (38-126); Anion Gap 14 mmol/L (8-16); Aspartate Amino Transferase 40 U/L (17-59); Bilirubin,Total 0.6 mg/dL (0.2-1.3); Blood Urea Nitrogen 59 mg/dL (9-20); Calcium 8.6 mg/dL (8.4-10.2); Carbon Dioxide 21 mmol/L (22-30); Chloride 95 mmol/L (98-107); Estimated CRCL calculation 14 ml/min; Estimated Glomerular Filt Rate 13; Glucose 138 mg/dL (65-110); Magnesium 2.3 mg/dL (1.6-2.3); Sodium 130 mmol/L (137-145)
[2022-09-05] MEDS: SODIUM CHLORIDE 0.9% IV 1,000 ML 999 ML IV CONT (13:49)
[2022-09-05 13:57] LABS: Troponin I 0.055 ng/mL (0.000-0.034)
[2022-09-05 14:19] LABS: Magnesium 2.3 mg/dL (1.6-2.3)
[2022-09-05 14:34] LABS: Troponin I 0.055 ng/mL (0.000-0.034)
[2022-09-05] MEDS: KETOROLAC 15 MG/ML VIAL (*BKC) IV PUSH (14:38)
--- NOTE | 2022-09-05 16:00 | PM.IMHP ---
H&P: HPI History of Present Illness Date/Time: 09/05/22 16:00 Chief Complaint: Fall x2. Narrative: This is an unfortunate 66-year-old male with history of seizures, traumatic subdural hemorrhage, dementia, dysarthria, hypertension, bipolar disorder, and asthma who presented to the emergency department via EMS from [facility] for evaluation after fall x2. He is alert in attempts to answer questions however due to his dysarthria he is difficult to understand and as such some of the following history is supplemented via a review of his electronic medical records. He had 2 witnessed falls today, the 1st he reportedly was standing up in fell down to his knees. The 2nd fall he fell forward and hit his chin on the curb and at that time he was brought in for evaluation. There is no documentation stating whether not he lost consciousness in the falls. He was hypotensive on arrival to the emergency department with a blood pressure of 69/44 and blood pressure did improve to 92/46 with 2 liters of IV fluids. His other vital signs have remained stable. Labs showed an acute kidney injury with a BUN and creatinine of 59 and 4.50 respectively and he is being admitted in this setting. Hansen catheter has been inserted and that yielded proximally 200 mL of urine. Patient reports that he has been eating and drinking okay though he does not seem to be reliable historian. He also denies fever, chills, sweats, headache, focal weakness, paresthesias, cold and flu symptoms, chest pain, shortness a breath, abdominal pain, dysuria, and diarrhea. At the time my evaluation he complains of being hungry and some discomfort in the lower back. Review of Systems Review of Systems: The patient does not seem to be a reliable historian given his underlying dementia, he also has pretty significant dysarthria. Except as documented above he stated no to every question asked of him. [facility] Past Medical History Medical History Asthma Bipolar disorder Chronic hypertension Dysarthria Epilepsy Insomnia Traumatic subdural hemorrhage Surgical History Surgical History (Updated 09/05/22 @ 21:22 by Kerri Contreras PA-C) History of inguinal hernia repair Family History Family History (Updated 09/05/22 @ 21:22 by Kerri Contreras PA-C) Other Family history unknown Social History Social History (Updated 09/05/22 @ 21:23 by Kerri Contreras PA-C) Social History: Surrogate medical decision maker: Darnell Madsenlin, friend. Emergency contact: Paige Machuca, niece. Code status: Do not resuscitate. Smoking status: Never smoker Alcohol intake: never Substance use: never Lack of Transportation: No Lack of Food: Never True Current Housing: Decline to Answer Concerned About Future Housing: Decline to Answer Difficulty Paying Gas/Electric Bills: Decline to Answer Difficulty Paying for Meds: Decline to Answer Currently Unemployed: Decline to Answer Education: Don't Know Difficulty w/ Childcare or Family Care: Decline to Answer Additional living arrangements comments: Resident at [facility]. 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 care concerns: No Meds Home Medications and Allergies Home Medications Medication Instructions Recorded Confirmed Type acetaminophen 325 mg capsule 650 mg PO Q6H PRN Pain (Scale 02/14/21 09/05/22 History (Tylenol) Score 1-3) buspirone 10 mg tablet 10 mg PO Q12H bipolar 02/14/21 09/05/22 History levetiracetam 750 mg tablet 750 mg PO BID 02/14/21 09/05/22 History lisinopril 20 mg tablet 20 mg PO DAILY 02/14/21 09/05/22 History melatonin 3 mg tablet 6 mg PO HS PRN Sleep 02/14/21 09/05/22 History meloxicam 15 mg tablet 15 mg PO DAILY 02/14/21 09/05/22 History olanzapine 15 mg tablet 15 mg PO DAILY 02/14/21 09/05/22 History acetaminophen 500 mg capsule 500 mg PO TID 09/05/22 09/05/22 History hydrocodone 5 mg-acetamino
[2022-09-05 16:48] LABS: Influenza A QL RT-PCR Negative (Negative); Influenza B QL RT-PCR Negative (Negative); RSV RNA, RT-PCR Negative (Negative); SARS-CoV-2 RNA PCR Negative
[2022-09-05 17:56] LABS: Appearance Urine Clear (Clear); Bilirubin Urine Negative (Negative); Blood Urine 2+ (Negative); Color Urine Yellow (Yellow); Glucose Urine UA Negative (Negative); Ketones Urine Trace mg/dL (Negative); Leukocyte Esterase Ur Negative LEU/UL (Negative); Nitrate Urine Negative (Negative); Protein Urine 1+ mg/dL (Negative); Urobilinogen Urine 0.2 mg/dL (<2.0)
[2022-09-05 18:04] LABS: Bacteria Urine Trace /hpf; Mucus Urine Rare /lpf; RBC Urine 0-2 /hpf (0-2); Squamous Epithelial Cell Urine Rare /hpf (Few); WBC Urine 0-3 /hpf
[2022-09-05 18:06] LABS: Add Urine Microscopic? YES
--- NOTE | 2022-09-05 18:33 | ADMGEN ---
This patient, Ramin Sarkar, was admitted to IMU Room 214-01. Patient/family oriented to hospital policies and general routines including ID bracelet, bed and alarms, visiting hours, pain management, procedures, bathroom and other care routines, personal items, smoking policy, room service/diet, and visiting hours. Information on how to activate the Rapid Response Team has been discussed. Patient/Family are encouraged to report perceived risks to care and to ask questions if they do not understand what they are told or what they should do.
[2022-09-05] MEDS: LACTATED RINGERS 1,000 ML 75 ML IV CONT (18:55)
--- NOTE | 2022-09-05 19:10 | PC.NURSE ---
Notified REX Francois of patient's decrease BP of 78/41 L arm and 69/43 in R arm. This RN performed a Cheetah on patient which showed he is fluid responsive. REX Francois also notified of the Chetah results as well as the POA (Darnell Almeida) is in agreement with a central line and pressors if patient should require them. Consent obtained and signed with second RN.
[2022-09-05] MEDS: LACTATED RINGERS 1,000 ML 999 ML IV CONT (19:34)
[2022-09-05 19:46] LABS: CRP 2.1 mg/dL (<1.0)
[2022-09-05 19:47] LABS: Anion Gap 8 mmol/L (8-16); Blood Urea Nitrogen 46 mg/dL (9-20); Calcium 8.1 mg/dL (8.4-10.2); Carbon Dioxide 25 mmol/L (22-30); Chloride 100 mmol/L (98-107); Creatine Kinase 532 U/L (55-170); Estimated CRCL calculation 20 ml/min; Estimated Glomerular Filt Rate 22; Glucose 135 mg/dL (65-110); Potassium 3.8 mmol/L (3.4-5.0); Sodium 133 mmol/L (137-145)
[2022-09-05 19:51] LABS: Troponin I 0.019 ng/mL (0.000-0.034)
[2022-09-05 19:56] LABS: Procalcitonin 0.1 ng/mL
[2022-09-05 22:10] LABS: Lactic Acid Reflex 0.8 mmol/L (0.7-2.0)
[2022-09-05 22:23] LABS: Troponin I 0.017 ng/mL (0.000-0.034)
[2022-09-05] MEDS: NICOTINE (*PBKC) 21 MG PATCH 1 PATCH TRANSDERM (22:35)
[2022-09-05] MEDS: levETIRAcetam 250 MG TABLET 750 MG PO (22:35)
[2022-09-05] MEDS: busPIRone HCL 10 MG TABLET PO (22:36)
[2022-09-05] MEDS: MIRTAZAPINE 15 MG TABLET PO (22:36)
[2022-09-05] MEDS: QUEtiapine FUMARATE 100 MG TABLET PO (22:37)
[2022-09-05] MEDS: LACTATED RINGERS 1,000 ML 100 ML IV CONT (22:37)
[2022-09-06] VITALS (19 sets, daily range): BP systolic 81–143; BP diastolic 53–82; PULSE 58–94; RESP 12–20; TEMP 36.1–37.4; O2SAT 97–99
--- NOTE | 2022-09-06 02:01 | PCRCNOTE ---
Pt will not wear CPAP, does not wear at home or ever have anything on his face
[2022-09-06 05:29] LABS: Basophils Percent Auto 0.4 % (0.2-1.2); Eosinophils Absolute Auto 0.1 K/mm3 (0-0.3); Hematocrit 34.1 % (42.0-52.0); Hemoglobin 11.3 g/dL (14.0-18.0); Immature Granulocyte Absolute 0.03 K/mm3 (0.00-0.031); Immature Granulocyte Percent A 0.4 % (0-0.5); Lymphocytes Absolute Auto 1.06 K/mm3 (0.9-3.2); Lymphocytes Percent Auto 13.3 % (18.3-44.2); Mean Corpuscular HGB Conc 33.1 g/dl (32-36); Mean Corpuscular Hemoglobin 31.7 pg (26-34); Mean Corpuscular Volume 95.8 fl (80-100); Mean Platelet Volume 9.7 fl (7.4-10.4); Monocytes Absolute Auto 0.9 K/mm3 (0.1-0.6); Monocytes Percent Auto 11.4 % (2.6-8.5); Neutrophils Absolute Auto 5.9 K/mm3 (1.3-6.7); Neutrophils Percent Auto 73.5 % (45.5-73.1); Platelet Count Result 315 k/mm3 (150-375); Red Blood Count 3.56 M/mm3 (4.6-6.20); Red Cell Distribution Width 14.3 % (11.5-14.5)
[2022-09-06 05:40] LABS: Alanine Aminotransferase 29 U/L (6-50); Albumin Level 3.4 g/dL (3.5-5.1); Alkaline Phosphatase 54 U/L (38-126); Anion Gap 4 mmol/L (8-16); Aspartate Amino Transferase 42 U/L (17-59); Bilirubin,Total 0.5 mg/dL (0.2-1.3); Blood Urea Nitrogen 28 mg/dL (9-20); Calcium 8.4 mg/dL (8.4-10.2); Carbon Dioxide 28 mmol/L (22-30); Chloride 104 mmol/L (98-107); Creatine Kinase 387 U/L (55-170); Estimated CRCL calculation 47 ml/min; Estimated Glomerular Filt Rate 60; Glucose 105 mg/dL (65-110); Magnesium 2.1 mg/dL (1.6-2.3); Sodium 136 mmol/L (137-145)
[2022-09-06] MEDS: HYDROcodone/acetaminophen (*CRX) 5-325 MG TABLET 1 TAB PO (06:30)
[2022-09-06] MEDS: QUEtiapine FUMARATE 100 MG TABLET PO ×2 (08:47→20:25)
[2022-09-06] MEDS: ACETAMINOPHEN 500 MG TABLET PO ×3 (08:47→16:21)
[2022-09-06] MEDS: levETIRAcetam 250 MG TABLET 750 MG PO ×2 (08:48→20:23)
[2022-09-06] MEDS: OLANZapine 5 MG TABLET 15 MG PO (08:48)
[2022-09-06] MEDS: CYANOCOBALAMIN 1,000 MCG TABLET 1000 MCG PO (08:48)
[2022-09-06] MEDS: busPIRone HCL 10 MG TABLET PO ×2 (08:49→20:22)
[2022-09-06] MEDS: LACTATED RINGERS 1,000 ML 100 ML IV CONT ×2 (08:59→19:02)
--- NOTE | 2022-09-06 09:57 | PCSTNOTE ---
Communication Evaluation completed and patient is judged to be functioning at baseline. See full evaluation. No further speech therapy is indicated at this time.
[2022-09-06] MEDS: ACETAMINOPHEN 325 MG TABLET 650 MG PO ×2 (13:37→20:23)
--- NOTE | 2022-09-06 14:55 | PM.IMPN ---
Progress Note: A&P Assessment and Plan (1) Fall: Code(s): W19.XXXA - Unspecified fall, initial encounter Status: Acute Assessment and Plan: The patient presented to the emergency department for evaluation of 2 falls today. With 2nd fall he fell and struck his chin on the curb and sustained a laceration which was sutured. Unclear if he lost consciousness but possible syncopal episode given his HoTN. Related to dehydration. Fall precautions initiated. Continue PT/OT. (2) Hypotension: Code(s): I95.9 - Hypotension, unspecified Status: Acute Assessment and Plan: Blood pressure was 69/44 on arrival to the emergency department. He received 3 liters of fluids in the ER. [place] HoTN related to dehydration given CARLEE and his noninvasive cardiac monitoring suggested he was fluid responsive. Sepsis felt unlikely. BCx NGTD. CXR minimal airspace opacities in the bases. On Narcotics but would seem less likely to cause the HoTN given the other findings. Lisinopril stopped. BP still soft today in the 80's despite improved renal function. Continue IV fluids. Check TSH and cortisol. Consider midodrine (3) Acute kidney injury: Code(s): N17.9 - Acute kidney failure, unspecified Status: Acute Assessment and Plan: BUN 59and Cr 4.5. [place] prerenal. Hansen catheter yielded 350 mL when inserted so doubt obstructive process. TCK mildly elelvated but probably relatd to poor renal clearance. Repat level trending down. With IV fluis, Cr has tended down to 1.2. Renal ultrasound showed no hydronephrosis and unremarkable kidneys. Continue IV fluids. (4) Syncope: Code(s): R55 - Syncope and collapse Status: Acute Assessment and Plan: Patient may have had a syncopal episode due to his low blood pressure. Nothing acute on telemetry. Echo showing EF 65-70% and Grade I diastolic dysfunction. Follow. (5) Laceration: Status: Acute Assessment and Plan: Chin laceration was repaired in the emergency room. (6) Chronic hypertension: Code(s): I10 - Essential (primary) hypertension Status: Chronic Assessment and Plan: Patient was on lisinopril 20 milligrams daily. Lisinopril on hold for now. (7) Dysarthria: Code(s): R47.1 - Dysarthria and anarthria Status: Chronic Assessment and Plan: Chronic and reportedly unchanged. Brain CT shows evidence of prior stroke. Speech therapy following. (8) Epilepsy: Qualifiers: Epilepsy type: unspecified Intractability: not intractable Status epilepticus: without status epilepticus Qualified Code(s): G40.909 - Epilepsy, unspecified, not intractable, without status epilepticus Code(s): G40.909 - Epilepsy, unspecified, not intractable, without status epilepticus Status: Chronic Assessment and Plan: Stable. Syncope caused by seizure? Continue levetiracetam. (9) Dementia: Code(s): F03.90 - Unspecified dementia, unspecified severity, without behavioral disturbance, psychotic disturbance, mood disturbance, and anxiety Status: Acute Assessment and Plan: Patient with dementia with behavioral disorder. He is currently on Seroquel, Buspar, Remeron, Zyprexa and scheduled Ativan. Majority of these mediations have been resumed. Medications verified by NH notes. Continue fall precautions. (10) Compression fracture: Status: Acute Assessment and Plan: Lumbar CT shows relatively acute appearing T12 and L1 burst fractures. Case discussed with neurosurgeon Dr. Decker who indicates that the sound more like compression fractures and there is no indication for intervention. She recommends pain control and reports that he would benefit from a TLSO brace. Will order. (11) Abnormal finding on CT scan: Code(s): R93.89 - Abnormal findings on diagnostic imaging of other specified body structures Status: Acute Assessment and Plan: C
[2022-09-06] MEDS: LORazepam (*CRX) 1 MG TABLET PO (16:24)
[2022-09-06] MEDS: MELATONIN 3 MG TABLET 6 MG PO (20:25)
[2022-09-06] MEDS: MIRTAZAPINE 15 MG TABLET PO (20:25)
[2022-09-06] MEDS: LORazepam (*CRX) 0.5 MG TABLET PO (20:25)
--- NOTE | 2022-09-06 21:51 | ECHO_ITS ---
Patient Info Name: Ramin Sarkar Age: 66 years : 1955 Gender: Male Ht: 67 in Wt: 136 lbs BSA: 1.71 m2 HR: 76 bpm BP: 107 / 70 mmHg Heart Rhythm: Sinus Rhythm Technical Quality: Fair Exam Date: 09/06/2022 7:55 AM Exam Location: [facility], [place] Card Pulmonary Patient Status: Inpatient Admit Date: 09/05/2022 Staff Ordering Physician: Kerri Contreras PA-C Tram Driver: Marion Mcnally RDCS Attending Provider: Shaq Schwarz MD Referring Physician: Ben JON; Exam Type: CA echo doppler color flow Study Info Indications - suspected syncope - hypotension Complete two-dimensional, color flow and Doppler transthoracic echocardiogram is performed. Summary 1. Technically difficult study. 2. Left ventricular systolic function is normal, estimated at 65-70%. 3. There is mildly increased left ventricular wall thickness. 4. The left ventricular diastolic function is grade I diastolic dysfunction. 5. Right ventricular systolic function is normal. 6. No significant valvular disease. Left Ventricle Left ventricular chamber dimension is normal. Left ventricular systolic function is normal, estimated at 65-70%. There is mildly increased left ventricular wall thickness. The left ventricular diastolic function is grade I diastolic dysfunction. Right Ventricle Right ventricular chamber dimension is normal. Right ventricular systolic function is normal. Left Atria Left atrial chamber dimension is normal. Right Atria Right atrial chamber dimension is normal. Atrial Septum Intact interatrial septum visualized by color flow imaging. Aortic Valve The aortic valve is not well visualized. There is no aortic valve stenosis. There is no aortic valve regurgitation. Mitral Valve The mitral valve has normal leaflets. There is no mitral valve stenosis. There is no mitral valve regurgitation. Tricuspid Valve The tricuspid valve leaflets are not well visualized. There is trace tricuspid valve regurgitation. Pericardium/Pleural There is no pericardial effusion. Inferior Vena Cava Normal inferior vena cava with <50% collapse upon inspiration consistent with elevated right atrial pressure. Aorta The aortic root size at the sinus of Valsalva is not well visualized. Left Ventricular Outflow Tract Name Value Normal LVOT 2D LVOT Diameter 1.9 cm LVOT Doppler LVOT Peak Gradient 3 mmHg LVOT Mean Gradient 1 mmHg LVOT VTI 14 cm LVOT VTI/AV VTI Ratio 0.8 LVOT Stroke Volume 40 ml LVOT CO 3.1 l/min LVOT CI 1.8 l/min/m2 Mitral Valve Name Value Normal MV Doppler MV Decel [place] 336 cm/s2 MV PHT
[2022-09-07] VITALS (12 sets, daily range): BP systolic 111–151; BP diastolic 75–101; PULSE 64–97; RESP 18–20; TEMP 36.7–36.8; O2SAT 97–99
[2022-09-07 04:42] LABS: Albumin Level 3.3 g/dL (3.5-5.1); Anion Gap 4 mmol/L (8-16); Blood Urea Nitrogen 13 mg/dL (9-20); Calcium 8.4 mg/dL (8.4-10.2); Carbon Dioxide 29 mmol/L (22-30); Chloride 102 mmol/L (98-107); Estimated CRCL calculation 105 ml/min; Estimated Glomerular Filt Rate > 60; Glucose 95 mg/dL (65-110); Phosphorus 2.1 mg/dL (2.5-4.5); Potassium 3.6 mmol/L (3.4-5.0); Sodium 135 mmol/L (137-145)
[2022-09-07] MEDS: LACTATED RINGERS 1,000 ML 100 ML IV CONT (04:55)
[2022-09-07] MEDS: OLANZapine 5 MG TABLET 15 MG PO (08:09)
[2022-09-07] MEDS: CYANOCOBALAMIN 1,000 MCG TABLET 1000 MCG PO (08:10)
[2022-09-07] MEDS: levETIRAcetam 250 MG TABLET 750 MG PO (08:10)
[2022-09-07] MEDS: ACETAMINOPHEN 500 MG TABLET PO (08:10)
[2022-09-07] MEDS: MELOXICAM 7.5 MG TABLET 15 MG PO (08:10)
[2022-09-07] MEDS: NICOTINE (*PBKC) 21 MG PATCH 1 PATCH TRANSDERM (08:10)
[2022-09-07] MEDS: QUEtiapine FUMARATE 100 MG TABLET PO (08:10)
[2022-09-07] MEDS: busPIRone HCL 10 MG TABLET PO (08:10)
--- NOTE | 2022-09-07 11:17 | PM.DS ---
DS: Admitting Diagnosis Discharge Date 09/07/2022 Admitting Diagnosis fall and syncope DS: Discharge Diagnosis Discharge Diagnosis (1) Fall: Code(s): W19.XXXA - Unspecified fall, initial encounter Status: Acute Assessment and Plan: The patient presented to the emergency department for evaluation of 2 falls today. With 2nd fall he fell and struck his chin on the curb and sustained a laceration which was sutured. Unclear if he lost consciousness but possible syncopal episode given his HoTN. Related to dehydration. Fall precautions initiated. Continue PT/OT. (2) Acute kidney injury: Code(s): N17.9 - Acute kidney failure, unspecified Status: Acute Assessment and Plan: Cr has tended down to 1.2. Renal ultrasound showed no hydronephrosis and unremarkable kidneys. And gentle hydration. Avoid nephrotoxic drugs. Monitor antihypertensive drugs Avoid NSAIDs. use Tylenol for pain control Routine CMP monitor GFR. Monitor electrolytes potassium levels. Dose antibiotics depending on creatinine clearance Routine follow-up with PCP and general office worker recommended (3) Syncope: Code(s): R55 - Syncope and collapse Status: Acute Assessment and Plan: Patient may have had a syncopal episode due to his low blood pressure. Nothing acute on telemetry. Echo showing EF 65-70% and Grade I diastolic dysfunction. Follow. (4) Laceration: Status: Acute Assessment and Plan: Chin laceration was repaired in the emergency room. (5) Chronic hypertension: Code(s): I10 - Essential (primary) hypertension Status: Chronic Assessment and Plan: Patient was on lisinopril 20 milligrams daily. Lisinopril on hold for now. and will be discontinued will switch patient to another antihypertensive possibly amlodipine 10 mg in view of renal insufficiency. (6) Dysarthria: Code(s): R47.1 - Dysarthria and anarthria Status: Chronic Assessment and Plan: Chronic and reportedly unchanged. Brain CT shows evidence of prior stroke. Speech therapy following. (7) Epilepsy: Qualifiers: Epilepsy type: unspecified Intractability: not intractable Status epilepticus: without status epilepticus Qualified Code(s): G40.909 - Epilepsy, unspecified, not intractable, without status epilepticus Code(s): G40.909 - Epilepsy, unspecified, not intractable, without status epilepticus Status: Chronic Assessment and Plan: Stable. Syncope caused by seizure? Continue levetiracetam. (8) Dementia: Code(s): F03.90 - Unspecified dementia, unspecified severity, without behavioral disturbance, psychotic disturbance, mood disturbance, and anxiety Status: Acute Assessment and Plan: Patient with dementia with behavioral disorder. He is currently on Seroquel, Buspar, Remeron, Zyprexa and scheduled Ativan. Majority of these mediations have been resumed. Medications verified by NH notes. Continue fall precautions. (9) Compression fracture: Status: Acute Assessment and Plan: Lumbar CT shows relatively acute appearing T12 and L1 burst fractures. Case discussed with neurosurgeon Dr. Decker who indicates that the sound more like compression fractures and there is no indication for intervention. She recommends pain control and reports that he would benefit from a TLSO brace. Will order. (10) Abnormal finding on CT scan: Code(s): R93.89 - Abnormal findings on diagnostic imaging of other specified body structures Status: Acute Assessment and Plan: CT of the lumbar spine showed incidental and unchanged 8mm indeterminate right renal lesion and unchanged mild dilation of common bile duct and main pancreatic duct without evidence of obstructing lesion. Since this is unchanged, will defer to primary provider for further evaluation depending on family wishes. DS: Summary Hospital Course Reason
[2022-09-07] MEDS: ACETAMINOPHEN 325 MG TABLET 650 MG PO (12:09)
[2022-09-07 12:39] LABS: EDCOVIDSCREEN Negative (Negative)
[2022-09-08 17:13] LABS: Levetiracetam Keppra 29.6 mcg/mL (6.0-46.0)
== END 2022-09-07 15:57 | DRG 683 ==
LOC: ANHED 15:14 → ANHIMU 16:50
PROVIDERS: Internal Medicine; Physician Assistant; Admitting Provider Family Medicine; Emergency Provider Emergency Medicine; PCP Internal Medicine; Visit Provider Internal Medicine
DX: N17.9 Acute kidney failure, unspecified (principal); S22.081A Stable burst fracture of T11-T12 vertebra, initial encounter for closed fracture; S32.011A Stable burst fracture of first lumbar vertebra, initial encounter for closed fracture; R55 Syncope and collapse; I95.9 Hypotension, unspecified; E86.0 Dehydration; S01.81XA Laceration without foreign body of other part of head, initial encounter; W19.XXXA Unspecified fall, initial encounter; R93.89 Abnormal findings on diagnostic imaging of other specified body structures; F03.90 Unspecified dementia, unspecified severity, without behavioral disturbance, psychotic disturbance, mood disturbance, and anxiety; I10 Essential (primary) hypertension; R47.1 Dysarthria and anarthria; G40.909 Epilepsy, unspecified, not intractable, without status epilepticus; J45.909 Unspecified asthma, uncomplicated; G47.00 Insomnia, unspecified; F31.9 Bipolar disorder, unspecified; Z20.822 Contact with and (suspected) exposure to COVID-19; Z66 Do not resuscitate; Z79.899 Other long term (current) drug therapy; Z86.73 Personal history of transient ischemic attack (TIA), and cerebral infarction without residual deficits; Z87.828 Personal history of other (healed) physical injury and trauma; Z91.81 History of falling
CPT/HCPCS: 12011; 36415; 70450; 71045; 72125; 72131; 73521; 76775; 80048; 80053; 80069; 80177; 81001; 82533; 82550; 83605; 83735; 84145; 84443; 84484; 85025; 85610; 85730; 86140; 87040; 87426; 87637; 92523; 93005; 93306; 96361; 96374; 97161; 99285; A9270; C1751; C9803; J0131; J1885; J7030; J7120

== ENCOUNTER 2022-12-23 10:29 | Emergency (ER) | payer MEDICARE, MEDICAID, SELFPAY ==
[2022-12-23] VITALS (17 sets, daily range): BP systolic 113–147; BP diastolic 84–99; PULSE 78–97; RESP 12–20; TEMP 36.4; O2SAT 97–99
--- NOTE | ~2022-12-23 | XR_ITS ---
Portable chest x-ray Comparison: 09/05/2022 Clinical History: Status post fall Findings: Lungs are clear, without focal consolidation or pleural effusion. Cardiomediastinal silho uette is stable. Chronic right rib fracture deformities unchanged. Impression: No acute abnormality. Reviewed, dictated and finalized at [facility]. TROLYSIS NEEDLE OPERATOR Impression: No acute abnormality.
--- NOTE | ~2022-12-23 | CT_ITS ---
EXAMINATION: CT brain wo con DATE: 12/23/2022 11:24 INDICATION: Head injury. TECHNIQUE: Computed tomography (CT) of the head was performed without intravenous contrast. The mA wa s adjusted according to patient size. Iterative reconstruction technique was employed. The dose-lengt h product was 681.00 mGy-cm. COMPARISON: Head CT 09/05/2022 FINDINGS: There is chronic encephalomalacia involving posterior right frontal lobe and right temporal parietal occipital region. There is no intracranial hemorrhage, acute infarction, or abnormal intrac ranial mass lesion. There is ex vacuo dilatation of right lateral ventricle. There is chronic 4 mm ri ghtward midline shift. There is mucosal thickening in the paranasal sinuses. The orbits are normal. T here is cerumen in the external auditory canals. There is a left mastoid effusion. There are chronic erosions of the left ossicles. IMPRESSION: 1. Chronic encephalomalacia involving posterior right frontal lobe and right temporal parietal occipi wild region. 2. Left-sided chronic otitis media. Reviewed, dictated and finalized at location A. DIAL MASSEUR IMPRESSION: 1. Chronic encephalomalacia involving posterior right frontal lobe and right te mporal parietal occipital region. 2. Left-sided chronic otitis media.
--- NOTE | ~2022-12-23 | XR_ITS ---
Left Shoulder Technique: AP internal rotation and external rotation views were obtained. Clinical History: Trauma Findings: There is a fracture of the distal clavicular shaft, minimally displaced. No dislocation razia dent. No other fracture seen. The glenohumeral and acromioclavicular joint spaces are preserved. Soft tissues are unremarkable. Impression: Traumatic, minimally displaced fracture of the distal clavicular shaft. Reviewed, dictated and finalized at location . CTOR OF APPLICATION DEVELOPMENT Impression: Traumatic, minimally displaced fracture of the distal clavicular shaft.
--- NOTE | ~2022-12-23 | CT_ITS ---
EXAMINATION: CT cervical spine wo con DATE: 12/23/2022 11:24 INDICATION: Head injury. Fall. TECHNIQUE: Computed tomography (CT) of the cervical spine was performed without intravenous contrast. Automated exposure control and iterative reconstruction technique were employed. The dose-length pro duct was 115.88 mGy-cm. COMPARISON: CT cervical spine 09/05/2022 FINDINGS: Bone alignment is normal. Vertebral body heights are normal. There is mildly decreased disc height at C5-C6. The following disc levels are specifically discussed: C2-C3: There is mild bilateral uncovertebral joint osteoarthritis. There is mild bilateral facet join t osteoarthritis. There is no neural foraminal stenosis. There is no central canal stenosis. C3-C4: There is severe right and mild left uncovertebral joint osteoarthritis. There is mild bilatera l facet joint osteoarthritis. There is moderate right neural foraminal stenosis. There is mild centra l canal stenosis. C4-C5: There is mild bilateral uncovertebral joint osteoarthritis. There is mild bilateral facet join t osteoarthritis. There is no neural foraminal stenosis. There is no central canal stenosis. C5-C6: There is moderate left uncovertebral joint osteoarthritis. There is mild bilateral facet joint osteoarthritis. There is mild left neural foraminal stenosis. There is mild central canal stenosis. C6-C7: There is mild left uncovertebral joint osteoarthritis. There is no facet joint osteoarthritis. There is no neural foraminal stenosis. There is no central canal stenosis. C7-T1: There is no uncovertebral joint osteoarthritis. There is mild left facet joint osteoarthritis. There is no neural foraminal stenosis. There is no central canal stenosis. IMPRESSION: 1. No fracture. 2. Moderate right neural foraminal stenosis at C3-C4. Otherwise mild cervical spondylosis. Reviewed, dictated and finalized at location A. OR INFORMATICA DEVELOPER IMPRESSION: 1. No fracture. 2. Moderate right neural foraminal stenosis at C3-C4. Otherwise mild cervical s pondylosis.
--- NOTE | 2022-12-23 11:35 | ED.FALL ---
HPI - Fall General Chief Complaint: Fall Stated Complaint: FALL, MORE CONFUSED THAN BASELINE Time Seen by Provider: 12/23/22 11:00 History of Present Illness HPI Narrative: Patient is a 67-year-old male here for evaluation after a fall from his nursing facility. Currently complaining of left shoulder pain and neck pain. Patient is unsure how he fell although his history is limited due to his baseline mental status. Reportedly he is more confused than usual. Patient has chronic dysarthria from old strokes. Related Data Home Medications Medication Instructions Recorded Confirmed acetaminophen 325 mg capsule 650 mg PO Q6H PRN Pain (Scale 02/14/21 09/05/22 (Tylenol) Score 1-3) buspirone 10 mg tablet 10 mg PO Q12H bipolar 02/14/21 09/05/22 levetiracetam 750 mg tablet 750 mg PO BID 02/14/21 09/05/22 melatonin 3 mg tablet 6 mg PO HS PRN Sleep 02/14/21 09/05/22 olanzapine 15 mg tablet 15 mg PO DAILY 02/14/21 09/05/22 acetaminophen 500 mg capsule 500 mg PO TID 09/05/22 09/05/22 hydrocodone 5 mg-acetaminophen 325 1 tablet PO HS 09/05/22 09/05/22 mg tablet lorazepam 1 mg tablet 1 mg PO 08,12,08 PRN anxiety 09/05/22 09/05/22 mecobalamin (vitamin B12) 1,000 1,000 mcg PO DAILY 09/05/22 09/05/22 mcg chewable tablet mirtazapine 15 mg tablet 15 mg PO HS 09/05/22 09/05/22 quetiapine 100 mg tablet 100 mg PO Q12H 09/05/22 09/05/22 Allergies Allergy/AdvReac Type Severity Reaction Status Date / Time No Known Allergies Allergy Verified 10/28/22 15:21 Review of Systems Review of Systems: Gen.: Denies fevers or chills Eyes: Denies eye pain or visual change ENT: Denies congestion Respiratory: Denies shortness of breath or cough CV: Denies chest pain or palpitations GI: Denies abdominal pain nausea, emesis or diarrhea denies burning, urgency, frequency or hematuria Musculoskeletal: Reports left shoulder pain Neuro: Reports posterior headache. Denies numbness, tingling, weakness or focal weakness Skin: Denies rash Except as documented, all other systems reviewed and negative PMFSH Past Medical History Medical History Asthma Bipolar disorder Chronic hypertension Dysarthria Epilepsy Insomnia Traumatic subdural hemorrhage Surgical History Surgical History History of inguinal hernia repair Family History Family History (System 10/28/22 @ 15:21 by Serjio Parker) Other Family history unknown Social History Social History (System 10/28/22 @ 15:21 by Serjio Parker) Social History: Surrogate medical decision maker: Darnell Workman, friend. Emergency contact: Paige Machuca, niece. Code status: Do not resuscitate. Smoking status: Never smoker Alcohol intake: never Substance use: never Lack of Transportation: No Lack of Food: Never True Current Housing: Decline to Answer Concerned About Future Housing: Decline to Answer Difficulty Paying Gas/Electric Bills: Decline to Answer Difficulty Paying for Meds: Decline to Answer Currently Unemployed: Decline to Answer Education: Don't Know Difficulty w/ Childcare or Family Care: Decline to Answer Additional living arrangements comments: Resident at [facility]. 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 Spiritual care concerns: No Exam Narrative: APPEARANCE: Well appearing, no pain in distress, well-nourished. Head: Normocephalic and atraumatic. EYES: PERRLA/EOMI, conjunctivae clear NOSE: No nasal drainage EARS: External ear normal in appearance THROAT: Oropharynx is clear. Mucous membranes are moist. NECK: Supple. No adenopathy, no masses. RESPIRATORY: Airway patent, respirations nonlabored. Clear to auscultation bilaterally, no rales, rhonchi, wheezing. CARDIOVASCULAR: Strong radial pulses. Regular rate and rhythm without murmurs, rubs, or gallops. ABDOMINAL: Normoactive bowel sounds. Soft, non
[2022-12-23 11:52] LABS: Basophils Percent Auto 0.2 % (0.2-1.2); Eosinophils Percent Auto 0.2 % (0-4.4); Hematocrit 37.4 % (42.0-52.0); Hemoglobin 12.5 g/dL (14.0-18.0); Immature Granulocyte Absolute 0.03 K/mm3 (0.00-0.031); Immature Granulocyte Percent A 0.4 % (0-0.5); Lymphocytes Absolute Auto 0.88 K/mm3 (0.9-3.2); Lymphocytes Percent Auto 10.3 % (18.3-44.2); Mean Corpuscular HGB Conc 33.4 g/dl (32-36); Mean Corpuscular Hemoglobin 32.6 pg (26-34); Mean Corpuscular Volume 97.7 fl (80-100); Monocytes Absolute Auto 0.7 K/mm3 (0.1-0.6); Monocytes Percent Auto 8.3 % (2.6-8.5); Neutrophils Absolute Auto 6.9 K/mm3 (1.3-6.7); Neutrophils Percent Auto 80.6 % (45.5-73.1); Platelet Count Result 380 k/mm3 (150-375); Red Blood Count 3.83 M/mm3 (4.6-6.20); Red Cell Distribution Width 13.2 % (11.5-14.5); White Blood Count 8.5 K/mm3 (4.5-10.0)
[2022-12-23 12:04] LABS: Alanine Aminotransferase 34 U/L (6-50); Albumin Level 4.4 g/dL (3.5-5.1); Alkaline Phosphatase 81 U/L (38-126); Anion Gap 7 mmol/L (8-16); Aspartate Amino Transferase 29 U/L (17-59); Bilirubin,Total 0.4 mg/dL (0.2-1.3); Blood Urea Nitrogen 13 mg/dL (9-20); Calcium 9.3 mg/dL (8.4-10.2); Carbon Dioxide 26 mmol/L (22-30); Chloride 95 mmol/L (98-107); Estimated CRCL calculation 81 ml/min; Estimated Glomerular Filt Rate > 60; Glucose 105 mg/dL (65-110); Potassium 4.1 mmol/L (3.4-5.0); Sodium 128 mmol/L (137-145)
--- NOTE | 2022-12-23 12:04 | ECG_ITS ---
Measurements Intervals [place] Rate: 79 P: 62 NE: 177 QRS: 49 QRSD: 94 T: 77 QT: 340 QTc: 390 Interpretive Statements SINUS RHYTHM BASELINE ARTIFACT- I, II, III, AVR, AVL, AVF NORMAL ECG NO PREVIOUS ECG AVAILABLE FOR COMPARISON Electronically Signed On 12-23-2022 16:51:23 UNIT MANAGER RN by Adria Johnston D.O.
--- NOTE | 2022-12-23 12:15 | PC.NURSE ---
Per REX Scruggs. C collar can be removed
[2022-12-23] MEDS: fentaNYL CITRATE INJ (*CRX) 100 MCG/2 ML VIAL 50 MCG IV PUSH (12:51)
== END 2022-12-23 13:49 ==
PROVIDERS: Emergency Provider Physician Assistant; PCP Family Medicine
DX: S42.022A Displaced fracture of shaft of left clavicle, initial encounter for closed fracture (principal); W19.XXXA Unspecified fall, initial encounter; I69.322 Dysarthria following cerebral infarction; J45.909 Unspecified asthma, uncomplicated; I10 Essential (primary) hypertension; F31.9 Bipolar disorder, unspecified; G40.909 Epilepsy, unspecified, not intractable, without status epilepticus; Z79.891 Long term (current) use of opiate analgesic
CPT/HCPCS: 36415; 70450; 71045; 72125; 73030; 80053; 85025; 93005; 96365; 96375; 99283; A4565; J0131; J3010

== ENCOUNTER 2023-09-07 13:51 | Emergency (ER) | payer MEDICARE, MEDICAID, SELFPAY ==
[2023-09-07 13:53] VITALS: BP 123/85; PULSE 85; RESP 15; TEMP 36.9; O2SAT 98
--- NOTE | 2023-09-07 14:37 | ED.GENADULT ---
HPI - General Adult General Chief complaint: Urogenital-Male Stated complaint: lesions on penis Time Seen by Provider: 09/07/23 14:09 Source: patient Mode of arrival: ambulatory Limitations: no limitations History of Present Illness HPI narrative: this is a 59-year-old male who presents to the ED the EMS from senior living with chief complaint of before lesions to the penis. Patient reports that he has noticed pain in this area for the last month or so. nursing staff reports they 1st noticed this 3 days ago. Patient denies problems with urination, dysuria, penile discharge, scrotal swelling or scrotal lesions. Denies fevers, chills, vomiting. States he has never had anything like The past. Per nursing is alert oriented x2 at baseline. Related Data Home Medications Medication Instructions Recorded Confirmed buspirone 10 mg tablet 10 mg PO Q12H bipolar 02/14/21 03/29/23 levetiracetam 750 mg tablet 750 mg PO BID 02/14/21 03/29/23 melatonin 3 mg tablet 6 mg PO HS PRN Sleep 02/14/21 03/29/23 olanzapine 15 mg tablet 15 mg PO DAILY 02/14/21 03/29/23 acetaminophen 500 mg capsule 500 mg PO TID 09/05/22 03/29/23 lorazepam 1 mg tablet 1 mg PO 08,12,08 PRN anxiety 09/05/22 03/29/23 mecobalamin (vitamin B12) 1,000 1,000 mcg PO DAILY 09/05/22 03/29/23 mcg chewable tablet mirtazapine 15 mg tablet 15 mg PO HS 09/05/22 03/29/23 quetiapine 100 mg tablet 100 mg PO Q12H 09/05/22 03/29/23 acetaminophen 300 mg-codeine 15 mg 1 tablet PO BID PRN 03/29/23 tablet Allergies Allergy/AdvReac Type Severity Reaction Status Date / Time No Known Allergies Allergy Verified 09/07/23 14:02 Review of Systems Review of Systems: All systems as dictated in [facility] Past Medical History Medical History (Updated 09/07/23 @ 15:40 by Rogelio Bravo PA-C) Asthma Bipolar disorder Cerebral edema Chronic hypertension Closed fracture of left clavicle Cognitive communication deficit Dysarthria Epilepsy Hypertension Insomnia Traumatic subdural hemorrhage Umbilical hernia Surgical History Surgical History History of inguinal hernia repair Family History Family History Other Family history unknown Social History Social History Social History: Surrogate medical decision maker: Darnell Workman, friend. Emergency contact: Paige Machuca, niece. Code status: Do not resuscitate. Smoking status: Current every day smoker Alcohol intake: never Substance use: never Lack of Transportation: No Lack of Food: Never True Current Housing: I Have Housing Concerned About Future Housing: No Difficulty Paying Gas/Electric Bills: No Difficulty Paying for Meds: No Currently Unemployed: No Education: Master's Degree or Higher Difficulty w/ Childcare or Family Care: No Living arrangements: senior living Additional living arrangements comments: Resident at [place]. 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 Spiritual care concerns: No Exam Narrative: GENERAL: Well-appearing, well-nourished, and in no acute distress. HEAD: Normocephalic, atraumatic. EYES: PERRLA and EOMI. ENT: Nares clear, no rhinorrhea or epistaxis. Mucous membranes moist. Oropharynx without tonsillar hypertrophy exudate or other lesions. NECK: Supple. No adenopathy or masses. CHEST: No respiratory distress. Clear to auscultation. No wheezes rales or rhonchi HEART: Regular rate and rhythm. No murmur heard. Normal peripheral pulses. ABDOMEN: Soft, nontender, nondistended, normal active bowel sounds. MSK: Normal range of motion. No edema. SKIN: Warm, dry, no rash. NEURO: Alert and oriented x3. No focal deficits. PSYCH: Normal mood and affect. exam: 2 distinct lesions to the shaft of the penis just proximal to the glans on the dorsa
[2023-09-07] MEDS: ACETAMINOPHEN 500 MG TABLET 1000 MG PO (15:06)
[2023-09-07] MEDS: LIDOCAINE HCL 1% LOCAL INJ 10 ML VIAL (15:07)
[2023-09-07] MEDS: cefTRIAXone 250 MG VIAL IM (15:07)
[2023-09-07 16:01] VITALS: BP 124/91; PULSE 88; RESP 16; O2SAT 97
[2023-09-07] MEDS: NICOTINE (*PBKC) 21 MG PATCH 1 PATCH TRANSDERM (16:31)
== END 2023-09-07 16:56 ==
PROVIDERS: Emergency Provider Physician Assistant; PCP Family Medicine
DX: A57 Chancroid (principal); J45.909 Unspecified asthma, uncomplicated; I10 Essential (primary) hypertension; G40.909 Epilepsy, unspecified, not intractable, without status epilepticus; F17.210 Nicotine dependence, cigarettes, uncomplicated; F31.9 Bipolar disorder, unspecified; Z66 Do not resuscitate
CPT/HCPCS: 87070; 96372; 99283; A9270; J0696

== ENCOUNTER 2024-06-15 10:24 | Inpatient (IN) | payer MEDICARE, MEDICAID, SELFPAY ==
[2024-06-15] VITALS (42 sets, daily range): BP systolic 120–154; BP diastolic 76–103; PULSE 67–144; RESP 12–30; TEMP 36.7–37.7; O2SAT 92–100
--- NOTE | ~2024-06-15 | CT_ITS ---
EXAMINATION: CT brain wo con DATE: 06/15/2024 14:49 INDICATION: seizure . TECHNIQUE: Computed tomography (CT) of the head was performed without intravenous contrast. The mA wa s adjusted according to patient size. Iterative reconstruction technique was employed. The dose-lengt h product was 908.00 mGy-cm. COMPARISON: None. FINDINGS: No acute intracranial hemorrhage or extra-axial fluid collection. No hydrocephalus, mass, or herniation. No acute ischemic infarct. Unremarkable dural venous sinus attenuation. No acute osseous abnormality. Chronic left ossicle erosion and sclerosis. Bilateral cerumen impaction. Left mastoid fluid. The remaining aerated spaces are clear. Mild atrophy and chronic white matter change. Atherosclerotic intracranial calcification. Stable post erior fossa arachnoid cyst, mild chronic midline shift, right hemispheric encephalomalacia, and ex va cuo right lateral ventricular dilation. IMPRESSION: No acute intracranial process. Reviewed, dictated and finalized at location K.
--- NOTE | ~2024-06-15 | XR_ITS ---
EXAMINATION: XR chest 1V portable DATE: 06/15/2024 11:47 INDICATION: Seizure. Fever. TECHNIQUE: A single frontal view of the chest was obtained. COMPARISON: Chest single view 12/23/2022, chest CT 02/14/2021 FINDINGS: There is mild atelectasis versus scarring in the lower lung zones. No pleural effusion or p neumothorax. The heart size is normal. 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 There are old healed rib fractures. IMPRESSION: 1. Mild atelectasis versus scarring in the lower lung zones. Reviewed, dictated and finalized at location A.
--- NOTE | 2024-06-15 10:29 | PC.NURSE ---
seizure pads in place on patients bed
[2024-06-15 10:55] LABS: Glucose Point of Care 102 mg/dl (65-105)
[2024-06-15] MEDS: LORazepam INJ (*CRX) 2 MG/ML VIAL 1 MG IV PUSH ×2 (10:59→11:09)
[2024-06-15] MEDS: SODIUM CHLORIDE 0.9% IV 2,400 ML/1,000 ML BAG 999 ML IV CONT ×2 (11:00→12:12)
[2024-06-15] MEDS: ACETAMINOPHEN 650 MG SUPPOSITORY RECTAL (11:01)
[2024-06-15] MEDS: levETIRAcetam 1000MG/NACL100ML 1,000 MG/100 ML BAG 400 MG IVPB (11:15)
[2024-06-15 11:20] LABS: Basophils Absolute Auto 0.1 K/mm3 (0.0-0.1); Basophils Percent Auto 0.4 % (0.2-1.2); Eosinophils Percent Auto 0.1 % (0-4.4); Hematocrit 42.6 % (42.0-52.0); Hemoglobin 14.6 g/dL (14.0-18.0); Immature Granulocyte Absolute 0.07 K/mm3 (0.00-0.031); Immature Granulocyte Percent A 0.5 % (0-0.5); Lymphocytes Absolute Auto 1.13 K/mm3 (0.9-3.2); Lymphocytes Percent Auto 8.5 % (18.3-44.2); Mean Corpuscular HGB Conc 34.3 g/dl (32-36); Mean Corpuscular Hemoglobin 32.1 pg (26-34); Mean Corpuscular Volume 93.6 fl (80-100); Mean Platelet Volume 9.8 fl (7.4-10.4); Monocytes Absolute Auto 0.8 K/mm3 (0.1-0.6); Monocytes Percent Auto 5.9 % (2.6-8.5); Neutrophils Absolute Auto 11.3 K/mm3 (1.3-6.7); Neutrophils Percent Auto 84.6 % (45.5-73.1); Platelet Count Result 452 k/mm3 (150-375); Red Blood Count 4.55 M/mm3 (4.6-6.20); White Blood Count 13.3 K/mm3 (4.5-10.0)
--- NOTE | 2024-06-15 11:23 | PC.NURSE ---
patient's tremors beginning to slow down. patient more verbal and able to answer yes and no questions. patient A&o to self at this time.
--- NOTE | 2024-06-15 11:33 | PC.NURSE ---
Patient tremors have stopped. patient resting comfortably.
[2024-06-15 11:44] LABS: Alanine Aminotransferase 38 U/L (6-50); Albumin Level 5.2 g/dL (3.5-5.1); Alkaline Phosphatase 86 U/L (38-126); Anion Gap 19 mmol/L (4-12); Aspartate Amino Transferase 42 U/L (17-59); Bilirubin,Total 0.5 mg/dL (0.2-1.3); Blood Urea Nitrogen 14 mg/dL (9-20); CRP < 0.5 mg/dL (<1.0); Carbon Dioxide 18 mmol/L (22-30); Chloride 100 mmol/L (98-107); Estimated CRCL calculation 64 ml/min; Estimated Glomerular Filt Rate > 60; Glucose 101 mg/dL (65-110); Potassium 4.6 mmol/L (3.4-5.0); Sodium 137 mmol/L (137-145)
[2024-06-15 12:06] LABS: INR 0.9; Partial Thromboplastin Time 25.7 Seconds (22.3-36.8); Prothrombin Time 12.6 Seconds (11.1-14.7)
[2024-06-15 12:18] LABS: Lactic Acid Reflex 1.1 mmol/L (0.7-2.0)
[2024-06-15 12:56] LABS: Influenza A QL RT-PCR Negative (Negative); Influenza B QL RT-PCR Negative (Negative); RSV RNA, RT-PCR Negative (Negative); SARS-CoV-2 RNA PCR Negative (Negative)
[2024-06-15 13:11] LABS: Add Urine Microscopic? YES; Appearance Urine Clear (Clear); Bacteria Urine None Seen /hpf; Bilirubin Urine Negative (Negative); Blood Urine 1+ (Negative); Color Urine Yellow (Yellow); Glucose Urine UA Negative (Negative); Ketones Urine Trace mg/dL (Negative); Leukocyte Esterase Ur Negative LEU/UL (Negative); Nitrate Urine Negative (Negative); Non Pathogenic Casts 0-2; Protein Urine Trace mg/dL (Negative); Specific Grav Ur 1.015 (1.001-1.035); Squamous Epithelial Cell Urine None Seen /hpf (Few); Urobilinogen Urine 0.2 mg/dL (<2.0); WBC Urine 0-5 /hpf (0-3)
--- NOTE | 2024-06-15 13:51 | ED.SEIZURE ---
HPI - Seizure General Chief Complaint: Seizure Stated Complaint: seizure-like activity Time Seen by Provider: 06/15/24 10:37 History of Present Illness HPI Narrative: patient is a 68-year-old male with history of epilepsy who presents ER with seizure. According [facility] he has had 2 today and then it got worse and so he was sent to the ER. It is unknown whether he received his Keppra today. Patient is awake alert. He can talk during the seizure. He was shaking on the left side in the arm and the leg. He is also found to be febrile here. Denies any cough urinary symptoms. Have history is limited due to cognitive issues. Seizure History: Yes Related Data Home Medications Medication Instructions Recorded Confirmed buspirone 10 mg tablet 10 mg PO TID bipolar 02/14/21 06/15/24 levetiracetam 750 mg tablet 750 mg PO Q12H 02/14/21 06/15/24 melatonin 3 mg tablet 6 mg PO HS 02/14/21 06/15/24 olanzapine 15 mg tablet 15 mg PO DAILY 02/14/21 06/15/24 mecobalamin (vitamin B12) 1,000 1,000 mcg PO DAILY 09/05/22 06/15/24 mcg chewable tablet mirtazapine 15 mg tablet 15 mg PO HS 09/05/22 06/15/24 acetaminophen 500 mg tablet 1,000 mg PO Q12H PRN Pain 06/15/24 06/15/24 acetaminophen 650 mg 650 mg PO Q12H 06/15/24 06/15/24 tablet,extended release alprazolam 0.5 mg tablet 0.5 mg PO Q6H 06/15/24 06/15/24 cholecalciferol (vitamin D3) 1,250 1,250 mcg PO WEEKLY 06/15/24 06/15/24 mcg (50,000 unit) capsule hydrocodone 5 mg-acetaminophen 325 1 tablet PO Q6H 06/15/24 06/15/24 mg tablet quetiapine 25 mg tablet 25 mg PO Q12H 06/15/24 06/15/24 quetiapine 50 mg tablet 50 mg PO Q12H 06/15/24 06/15/24 Allergies Allergy/AdvReac Type Severity Reaction Status Date / Time No Known Allergies Allergy Verified 06/15/24 17:46 Review of Systems Review of Systems: ROS unobtainable: Yes unobtainable due to mental status PMFSH Past Medical History Medical History Asthma Bipolar disorder Cerebral edema Chronic hypertension Closed fracture of left clavicle Cognitive communication deficit Dysarthria Epilepsy Hypertension Insomnia Traumatic subdural hemorrhage Umbilical hernia Surgical History Surgical History History of inguinal hernia repair Family History Family History Other Family history unknown Social History Social History Social History: Surrogate medical decision maker: Darnell Workman, friend. Emergency contact: Paige Machuca, niece. Code status: Do not resuscitate. Smoking status: Unknown if ever smoked Alcohol intake: current Drinks per week: 1 Substance use: unknown Lack of Transportation: No Lack of Food: Never True Current Housing: I Have Housing Concerned About Future Housing: No Difficulty Paying Gas/Electric Bills: No Difficulty Paying for Meds: No Currently Unemployed: No Education: Master's Degree or Higher Difficulty w/ Childcare or Family Care: No Living arrangements: [facility] Additional living arrangements comments: Resident at [facility]. 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 HEAD: Normocephalic, atraumatic. EYES: PERRL and EOMI. ENT: Mucous membranes moist. CHEST: Clear to auscultation. No respiratory distress. HEART: tachycardic and regular.. Normal peripheral pulses. ABDOMEN: Soft, nontender, nondistended. EXTREMITIES: Normal range of motion. No edema. SKIN: Warm, dry, no rash. NEURO: Alert and oriented x2. focal seizure left upper and lower extremity. Head is turned to the left side as well. PSYCH: Normal mood and affect. Course Course Emergency Course: Seizing resolved w
[2024-06-15] MEDS: SODIUM CHLORIDE 0.9% IV 2,400 ML/1,000 ML BAG 400 ML IV CONT (14:28)
--- NOTE | 2024-06-15 17:00 | ADMGEN ---
This patient, Ramin Sarkar, was admitted to [facility] Surg Room 322-02. Patient/family oriented to hospital policies and general routines including ID bracelet, bed and alarms, visiting hours, pain management, procedures, bathroom and other care routines, personal items, smoking policy, room service/diet, and visiting hours. Information on how to activate the Rapid Response Team has been discussed. Patient/Family are encouraged to report perceived risks to care and to ask questions if they do not understand what they are told or what they should do.
--- NOTE | 2024-06-15 17:20 | PM.IMHP ---
H&P: HPI History of Present Illness Date/Time: 06/15/24 17:20 Chief Complaint: Seizure-like activity Narrative: 68-year-old male with a PMHx: of epilepsy, dementia with behavioral disturbances, presented to the ER via EMS with complaints made by staff that patient had two witnessed episodes of seizure-like activity. Patient is a poor historian, due to speech and cognitive decline in function he is not able to provide reliable HPI. In the ED: Patient arrived he was febrile 100.0, elevated b/p: 154/100, elevated heart rate 144, RR 30, WBC 13, UA trace ketones +1 blood, viral PCR is negative, NS IV 2 L, Keppra IV 1000 mg, lorazepam 1 mg IVP PMFSH Past Medical History Medical History Asthma Bipolar disorder Cerebral edema Chronic hypertension Closed fracture of left clavicle Cognitive communication deficit Dysarthria Epilepsy Hypertension Insomnia Traumatic subdural hemorrhage Umbilical hernia Surgical History Surgical History History of inguinal hernia repair Family History Family History Other Family history unknown Social History Social History Social History: Surrogate medical decision maker: Darnell Workman, friend. Emergency contact: Paige Machuca, niece. Code status: Do not resuscitate. Smoking status: Current every day smoker Alcohol intake: never Substance use: never Lack of Transportation: No Lack of Food: Never True Current Housing: I Have Housing Concerned About Future Housing: No Difficulty Paying Gas/Electric Bills: No Difficulty Paying for Meds: No Currently Unemployed: No Education: Master's Degree or Higher Difficulty w/ Childcare or Family Care: No Living arrangements: halfway Additional living arrangements comments: Resident at [facility]. 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 Spiritual care concerns: No Meds Home Medications and Allergies Home Medications Medication Instructions Recorded Confirmed Type buspirone 10 mg tablet 10 mg PO Q12H bipolar 02/14/21 03/29/23 History levetiracetam 750 mg tablet 750 mg PO BID 02/14/21 03/29/23 History melatonin 3 mg tablet 6 mg PO HS PRN Sleep 02/14/21 03/29/23 History olanzapine 15 mg tablet 15 mg PO DAILY 02/14/21 03/29/23 History acetaminophen 500 mg capsule 500 mg PO TID 09/05/22 03/29/23 History lorazepam 1 mg tablet 1 mg PO 08,12,08 PRN anxiety 09/05/22 03/29/23 History mecobalamin (vitamin B12) 1,000 1,000 mcg PO DAILY 09/05/22 03/29/23 History mcg chewable tablet mirtazapine 15 mg tablet 15 mg PO HS 09/05/22 03/29/23 History quetiapine 100 mg tablet 100 mg PO Q12H 09/05/22 03/29/23 History amlodipine 10 mg tablet (Norvasc) 10 mg PO DAILY #30 tabs 09/07/22 03/29/23 Rx acetaminophen 300 mg-codeine 15 mg 1 tablet PO BID PRN 03/29/23 History tablet Allergies Allergy/AdvReac Type Severity Reaction Status Date / Time No Known Allergies Allergy Verified 06/15/24 17:46 Vital Signs Vital Signs - 24 hr 06/15/24 10:23 06/15/24 10:29 06/15/24 11:30 Temperature 100 F H Pulse Rate 144 H 99 Respiratory Rate 30 H 18 Blood Pressure 154/100 H Pulse Oximetry 96 97 92 Oxygen Delivery Room Air Room Air 06/15/24 11:31 06/15/24 11:32 06/15/24 11:45 Temperature Pulse Rate 98 98 94 Respiratory Rate 18 17 20 Blood Pressure 129/81 133/84 Pulse Oximetry 94 95 94 Oxygen Delivery 06/15/24 11:46 06/15/24 12:01 06/15/24 12:15 Temperature 98.2 F Pulse Rate 92 89 80 Respiratory Rate 17 18 18 Blood Pressure 134/82 Pulse Oximetry 96 98 98 Oxygen Delivery 06/15/24 12:16 06/15/24 12:30 06/15/24 12:31 Temperature 98.2 F 98.0 F 98.0 F Pulse Rate 81 81 83 Respiratory Rate 16 17 19 Blood Pressure 130/81 126/76 Pulse Oxim
--- NOTE | 2024-06-15 17:25 | PC.NURSE ---
Urinary catheter removed per order.
[2024-06-15] MEDS: HYDROcodone/acetaminophen (*CRX) 5-325 MG TABLET 1 TAB PO ×2 (17:55→21:32)
[2024-06-15] MEDS: SODIUM CHLORIDE 0.9% IV 1,000 ML 125 ML IV CONT (17:55)
[2024-06-15] MEDS: levETIRAcetam 500 MG TABLET 1000 MG PO (20:05)
[2024-06-16] VITALS (8 sets, daily range): BP systolic 122–141; BP diastolic 68–87; PULSE 60–78; RESP 16–18; TEMP 36.7–37.1; O2SAT 92–100
[2024-06-16] MEDS: HYDROcodone/acetaminophen (*CRX) 5-325 MG TABLET 1 TAB PO ×5 (02:40→22:17)
[2024-06-16] MEDS: SODIUM CHLORIDE 0.9% IV 1,000 ML 125 ML IV CONT ×3 (05:28→22:15)
[2024-06-16 07:19] LABS: Basophils Absolute Auto 0.1 K/mm3 (0.0-0.1); Basophils Percent Auto 0.7 % (0.2-1.2); Eosinophils Absolute Auto 0.1 K/mm3 (0-0.3); Eosinophils Percent Auto 1.3 % (0-4.4); Hematocrit 41.1 % (42.0-52.0); Hemoglobin 13.3 g/dL (14.0-18.0); Immature Granulocyte Absolute 0.03 K/mm3 (0.00-0.031); Immature Granulocyte Percent A 0.4 % (0-0.5); Lymphocytes Absolute Auto 2.28 K/mm3 (0.9-3.2); Lymphocytes Percent Auto 27.5 % (18.3-44.2); Mean Corpuscular HGB Conc 32.4 g/dl (32-36); Mean Corpuscular Hemoglobin 31.4 pg (26-34); Mean Corpuscular Volume 97.2 fl (80-100); Mean Platelet Volume 9.8 fl (7.4-10.4); Monocytes Absolute Auto 0.9 K/mm3 (0.1-0.6); Monocytes Percent Auto 10.7 % (2.6-8.5); Neutrophils Absolute Auto 4.9 K/mm3 (1.3-6.7); Neutrophils Percent Auto 59.4 % (45.5-73.1); Platelet Count Result 373 k/mm3 (150-375); Red Blood Count 4.23 M/mm3 (4.6-6.20); Red Cell Distribution Width 14.3 % (11.5-14.5); White Blood Count 8.3 K/mm3 (4.5-10.0)
[2024-06-16 07:26] LABS: Alanine Aminotransferase 37 U/L (6-50); Albumin Level 4.3 g/dL (3.5-5.1); Alkaline Phosphatase 69 U/L (38-126); Anion Gap 11 mmol/L (4-12); Aspartate Amino Transferase 100 U/L (17-59); Bilirubin,Total 0.8 mg/dL (0.2-1.3); Blood Urea Nitrogen 11 mg/dL (9-20); Calcium 9.3 mg/dL (8.4-10.2); Carbon Dioxide 24 mmol/L (22-30); Chloride 101 mmol/L (98-107); Estimated CRCL calculation 78 ml/min; Estimated Glomerular Filt Rate > 60; Glucose 88 mg/dL (65-110); Potassium 4.1 mmol/L (3.4-5.0); Sodium 136 mmol/L (137-145)
[2024-06-16] MEDS: ENOXAPARIN 40 MG/0.4 ML SYRINGE SUB-Q (09:57)
[2024-06-16] MEDS: levETIRAcetam 500 MG TABLET 1000 MG PO ×2 (09:57→22:16)
--- NOTE | 2024-06-16 09:59 | PC.NURSE ---
pt found with new skin tear with scant blood after attempting to get out of bed this AM; mepitel one applied.
--- NOTE | 2024-06-16 17:34 | PM.IMPN ---
Progress Note: A&P Assessment and Plan (1) Seizure: Code(s): R56.9 - Unspecified convulsions Status: Acute Assessment and Plan: -reported by [facility] home. Had a low grade temp on arrival. Off antibiotics. -continue telemetry -seizure precautions -Home levetiracetam 750 mg, was increased to 1000mg BID, continue pending neurology recs --Neurology consult (2) Bipolar disorder: Qualifiers: Active/Remission status: remission status unspecified Qualified Code(s): F31.9 - Bipolar disorder, unspecified Code(s): F31.9 - Bipolar disorder, unspecified Status: Chronic Assessment and Plan: -dementia with behavioral disorder -continue home medication quetiapine, BuSpar, Remeron, Zyprexa, p.r.n. Ativan (3) Chronic hypertension: Code(s): I10 - Essential (primary) hypertension Status: Chronic Assessment and Plan: -BP elevated upon arrival 154/100 but has been relatively controlled off med today - home medication amlodipine 10 mg p.o. daily --Start amlodipine 5mg daily, increase as tolerated -monitor vitals q.4 hours (4) Dementia: Code(s): F03.90 - Unspecified dementia, unspecified severity, without behavioral disturbance, psychotic disturbance, mood disturbance, and anxiety Status: Acute Assessment and Plan: Calm and cooperative Speech difficult to understand Plan Continue home medications: VTE Prophylaxis: DIET: Heart healthy diet, mechanical soft Anticipated hospital stay: > 2 days Code Status: DNR Time Spent With Patient Time with patient: Greater than 35 minutes Subjective Date/time seen: 06/16/24 17:34 Interval history: Reports difficulty sleeping overnight. No fevers off antibiotics Has been afebrile. No seizurelike activity on higher dose of keppra. Review of Systems Constitutional: Constitutional: Reports as per HPI Exam Narrative: General: A chronically ill appearing gentlemen, sitting up in bed. HEENT: PERRL, EOMI. Oral mucosa moist. Neck: Supple. No midline cervical tenderness. Respiratory: Respirations are non- labored and lungs are clear to auscultation bilaterally. Cardiovascular: Regular rate and rhythm with S1-S2. Gastrointestinal: Abdomen is soft, non-tender, and non-distended with positive bowel sounds. Skin: Warm and dry. No rash or lesions on limited exam. Extremities: No cyanosis, clubbing, or edema. Radial and pedal pulses intact. Neurological: Alert and oriented. Cranial nerves 2-12 are grossly intact. No gross focal deficits to casual conversation. Psychiatric: Anxious, cooperative with normal mood and affect. : Hansne in place, draining yellow clear urine Const: General: cooperative, anxious and ill appearing Objective Data Vital Signs Vital Signs: Vital Signs - 24 hr 06/15/24 20:00 06/15/24 20:00 06/15/24 20:00 Temperature 98.9 F Pulse Rate 80 88 Respiratory Rate 16 Blood Pressure 140/103 H Pulse Oximetry 99 99 Oxygen Delivery Room Air 06/15/24 23:43 06/16/24 00:00 06/16/24 04:00 Temperature 98.9 F 98.7 F Pulse Rate 70 69 73 Respiratory Rate 16 16 Blood Pressure 120/97 H 141/87 H Pulse Oximetry 98 100 Oxygen Delivery 06/16/24 04:00 06/16/24 12:00 Temperature 98.0 F Pulse Rate 62 68 Respiratory Rate 16 Blood Pressure 130/80 Pulse Oximetry 99 Oxygen Delivery Intake/Output Intake/Output: Intake & Output 06/13/24 06/14/24 06/15/24 06/16/24 23:59 23:59 23:59 23:59 Intake Total 2740 2730 Output Total 1750 1800 Balance 990 930 Meds/Results Medications: Active Medications Generic Name Dose Route Start Last Admin Trade Name Freq PRN Reason Stop Dose Admin Acetaminophen 650 mg 06/15/24 15:11 Acetaminophen 325 Mg Tablet PO Q4H PRN Mild Pain (1-3) or Fever Hydrocodone Bitart/Acetaminophen 1 tab 06/15/24 15:11 06/16/24 15:52 Hydrocodone/Acetaminophen (*Crx) 5-325 Mg Tablet PO 1 tab
[2024-06-16] MEDS: busPIRone HCL 10 MG TABLET PO (18:46)
--- NOTE | 2024-06-16 19:14 | WPDNEURCNPN ---
Assessment and Plan Assessment and plan (1) Epilepsy: Qualifiers: Epilepsy type: unspecified Intractability: not intractable Status epilepticus: without status epilepticus Qualified Code(s): G40.909 - Epilepsy, unspecified, not intractable, without status epilepticus Code(s): G40.909 - Epilepsy, unspecified, not intractable, without status epilepticus Status: Chronic (2) Bipolar disorder: Qualifiers: Active/Remission status: remission status unspecified Qualified Code(s): F31.9 - Bipolar disorder, unspecified Code(s): F31.9 - Bipolar disorder, unspecified Status: Chronic (3) Static encephalopathy: Code(s): G93.49 - Other encephalopathy Status: Acute Plan I do not know the if he has a static encephalopathy or dementia as a cause for his current mental status. He is from a [place] [facility]. At any rate he has been on Keppra. He is also on olanzapine and few other medications prescribed from psychiatric point of view. I will suggest increase the dose of Keppra to 1000 mg twice a day for now in view of the fact that he has had 2 seizures. It should however be noted that Keppra can sometimes lead to combative or agitated behavior however this needs to be if I would be the caring staff and if necessary an alternate medication can be provided. He does not appear that he is following with a neurologist on regular basis and I would suggest some follow-up will be helpful. Consult date: 06/16/24 HPI: Ramin Sarkar is a 68 year old male with history of static encephalopathy and seizure disorder and behavior problems presented to the emergency room after having had 2 seizures. His temperature was up to 100 degree F and white cell count was high at 13.3. The ER physician discuss this with me and we thought that it may have been due to the effect of seizures but other etiologies need to be borne in mind. CT scan of brain was performed which did not show any acute findings. We decided to increase the dose of Keppra to 1000 mg twice a day. His home medications included multiple medications including some psychiatric and behavioral medicine drugs as well as Keppra is 1500 mg a day. Patient himself is not able to give any history. No family members available. Information is obtained from the review of the records. Review of Systems Review of Systems: ROS unobtainable: Yes unobtainable due to medical condition [facility] Past Medical History Medical History (Updated 06/16/24 @ 19:18 by Jonah Martin MD) Asthma Bipolar disorder Cerebral edema Chronic hypertension Closed fracture of left clavicle Cognitive communication deficit Dysarthria Epilepsy Hypertension Insomnia Static encephalopathy Traumatic subdural hemorrhage Umbilical hernia Surgical History Surgical History History of inguinal hernia repair Family History Family History Other Family history unknown Social History Social History Social History: Surrogate medical decision maker: Darnell Workman, friend. Emergency contact: Paige Machuca, niece. Code status: Do not resuscitate. Smoking status: Unknown if ever smoked Alcohol intake: current Drinks per week: 1 Substance use: unknown Lack of Transportation: No Lack of Food: Never True Current Housing: I Have Housing Concerned About Future Housing: No Difficulty Paying Gas/Electric Bills: No Difficulty Paying for Meds: No Currently Unemployed: No Education: Master's Degree or Higher Difficulty w/ Childcare or Family Care: No Living arrangements[place] [facility] Additional living arrangements comments: Resident at [facility]. 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 Spiritual care concerns: No Meds Home Medications and Allergies
[2024-06-16] MEDS: MELATONIN 3 MG TABLET 6 MG PO (22:16)
[2024-06-16] MEDS: MIRTAZAPINE 15 MG TABLET PO (22:17)
[2024-06-16] MEDS: ACETAMINOPHEN 325 MG TABLET 650 MG PO (22:17)
[2024-06-17] VITALS (8 sets, daily range): BP systolic 122–190; BP diastolic 68–89; PULSE 55–87; RESP 16–19; TEMP 36.3–37; O2SAT 95–100
[2024-06-17] MEDS: HYDROcodone/acetaminophen (*CRX) 5-325 MG TABLET 1 TAB PO ×3 (06:15→18:15)
[2024-06-17 07:59] LABS: Basophils Percent Auto 0.4 % (0.2-1.2); Eosinophils Absolute Auto 0.1 K/mm3 (0-0.3); Eosinophils Percent Auto 0.8 % (0-4.4); Hematocrit 39.4 % (42.0-52.0); Immature Granulocyte Absolute 0.03 K/mm3 (0.00-0.031); Immature Granulocyte Percent A 0.4 % (0-0.5); Lymphocytes Absolute Auto 1.42 K/mm3 (0.9-3.2); Lymphocytes Percent Auto 18.9 % (18.3-44.2); Mean Corpuscular Hemoglobin 31.9 pg (26-34); Mean Corpuscular Volume 96.6 fl (80-100); Mean Platelet Volume 9.6 fl (7.4-10.4); Monocytes Absolute Auto 0.7 K/mm3 (0.1-0.6); Monocytes Percent Auto 9.6 % (2.6-8.5); Neutrophils Absolute Auto 5.3 K/mm3 (1.3-6.7); Neutrophils Percent Auto 69.9 % (45.5-73.1); Platelet Count Result 361 k/mm3 (150-375); Red Blood Count 4.08 M/mm3 (4.6-6.20); Red Cell Distribution Width 13.9 % (11.5-14.5); White Blood Count 7.5 K/mm3 (4.5-10.0)
[2024-06-17 08:18] LABS: Alanine Aminotransferase 32 U/L (6-50); Albumin Level 4.1 g/dL (3.5-5.1); Alkaline Phosphatase 63 U/L (38-126); Anion Gap 8 mmol/L (4-12); Aspartate Amino Transferase 83 U/L (17-59); Bilirubin,Total 0.8 mg/dL (0.2-1.3); Blood Urea Nitrogen 9 mg/dL (9-20); Calcium 8.9 mg/dL (8.4-10.2); Carbon Dioxide 25 mmol/L (22-30); Chloride 102 mmol/L (98-107); Estimated CRCL calculation 111 ml/min; Estimated Glomerular Filt Rate > 60; Glucose 91 mg/dL (65-110); Potassium 4.2 mmol/L (3.4-5.0); Sodium 135 mmol/L (137-145)
--- NOTE | 2024-06-17 08:43 | PM.IMPN ---
Progress Note: A&P Assessment and Plan (1) Seizure: Code(s): R56.9 - Unspecified convulsions Status: Acute (2) Static encephalopathy: Code(s): G93.49 - Other encephalopathy Status: Acute (3) Epilepsy: Qualifiers: Epilepsy type: unspecified Intractability: not intractable Status epilepticus: without status epilepticus Qualified Code(s): G40.909 - Epilepsy, unspecified, not intractable, without status epilepticus Code(s): G40.909 - Epilepsy, unspecified, not intractable, without status epilepticus Status: Chronic (4) Chronic hypertension: Code(s): I10 - Essential (primary) hypertension Status: Chronic (5) Bipolar disorder: Qualifiers: Active/Remission status: remission status unspecified Qualified Code(s): F31.9 - Bipolar disorder, unspecified Code(s): F31.9 - Bipolar disorder, unspecified Status: Chronic Plan (1) Seizure: Code(s): R56.9 - Unspecified convulsions Status: Acute Assessment and Plan: -reported by [facility] home. Had a low grade temp on arrival. Off antibiotics. -continue telemetry -seizure precautions -Home levetiracetam 750 mg, was increased to 1000mg BID, Patient had active seizure in the morning, per nurse report, patient had a tonic seizure about 15 seconds and Provide Ativan 2 mg IV push p.r.n. for active seizure continue current medication, follow-up neurologist recommendation SIRS Patient arrived he was febrile 100.0, elevated b/p: 154/100, elevated heart rate 144, RR 30, WBC 13, UA trace ketones +1 blood, viral PCR is negative Blood culture negative No obvious sign of infection Now resolved (2) Bipolar disorder: Qualifiers: Active/Remission status: remission status unspecified Qualified Code(s): F31.9 - Bipolar disorder, unspecified Code(s): F31.9 - Bipolar disorder, unspecified Status: Chronic Assessment and Plan: -dementia with behavioral disorder -continue home medication quetiapine, BuSpar, Remeron, Zyprexa, p.r.n. Ativan (3) Chronic hypertension: Code(s): I10 - Essential (primary) hypertension Status: Chronic Assessment and Plan: -BP elevated upon arrival 154/100 but has been relatively controlled off med today - home medication amlodipine 10 mg p.o. daily --Start amlodipine 5mg daily -monitor vitals q.4 hours Blood pressure is well controlled, continue current blood pressure medication (4) Dementia: Code(s): F03.90 - Unspecified dementia, unspecified severity, without behavioral disturbance, psychotic disturbance, mood disturbance, and anxiety Status: Acute Assessment and Plan: Calm and cooperative Speech difficult to understand the MRI Patient alert, not oriented x3, possible baseline Subjective Date/time seen: 06/17/24 08:43 Interval history: I saw examined the patient today in presents of patient's nurse. Patient alert, not oriented, patient knows his name, patient does not even know is a nurse's name. Per nurse report, patient had tonic seizure in the morning, lasts about above 15 seconds. Patient denies headache, vision change, palpitation, chest pain, shortness breast, abdomen pain, nausea vomiting diarrhea.. Patient afebrile, blood pressure stable Exam Narrative: GENERAL: Pleasant, in no acute distress. Well-nourished. - EYES: EOMI. Anicteric. - HENT: Moist mucous membranes. - LUNGS: Clear to auscultation bilaterally, no wheezing, rhonchi, or rales. - CARDIOVASCULAR: Regular rate and rhythm. No murmur. No JVD. - ABDOMEN: Soft, non-tender and non-distended. No palpable masses. - EXTREMITIES: No edema. Peripheral pulses 2+. Non-tender. - NEUROLOGIC: No focal neurological deficits. CN II-XII grossly intact. General weakness - PSYCHIATRIC: Awake, Alert and not oriented x 3. Appropriate mood and affect. - SKIN: No rashes or lesions. Warm. - LYMPH: No cervical lymphadenopathy.
[2024-06-17] MEDS: amLODIPine BESYLATE 5 MG TABLET PO (09:26)
[2024-06-17] MEDS: levETIRAcetam 500 MG TABLET 1000 MG PO (09:26)
[2024-06-17] MEDS: ACETAMINOPHEN 325 MG TABLET 650 MG PO ×2 (09:26→20:37)
[2024-06-17] MEDS: CYANOCOBALAMIN 1,000 MCG TABLET 1000 MCG PO (09:27)
[2024-06-17] MEDS: busPIRone HCL 10 MG TABLET PO ×3 (09:27→17:47)
[2024-06-17] MEDS: ENOXAPARIN 40 MG/0.4 ML SYRINGE SUB-Q (09:34)
[2024-06-17] MEDS: SODIUM CHLORIDE 0.9% IV 1,000 ML 125 ML IV CONT (09:35)
[2024-06-17] MEDS: OLANZapine 5 MG TABLET 15 MG PO (11:06)
[2024-06-17] MEDS: QUEtiapine FUMARATE 25 MG TABLET PO ×2 (11:22→20:37)
[2024-06-17] MEDS: QUEtiapine FUMARATE 25 MG TABLET 50 MG PO ×2 (11:22→20:37)
[2024-06-17] MEDS: LORazepam INJ (*CRX) 2 MG/ML VIAL IV PUSH (16:00)
[2024-06-17] MEDS: levETIRAcetam 500 MG TABLET 1500 MG PO (20:37)
[2024-06-17] MEDS: MIRTAZAPINE 15 MG TABLET PO (20:37)
[2024-06-17] MEDS: MELATONIN 3 MG TABLET 6 MG PO (20:37)
[2024-06-18] VITALS (7 sets, daily range): BP systolic 119–133; BP diastolic 72–90; PULSE 53–86; RESP 17–20; TEMP 36.4–37.2; O2SAT 90–98
[2024-06-18] MEDS: SODIUM CHLORIDE 0.9% IV 1,000 ML 125 ML IV CONT ×2 (03:30→12:41)
--- NOTE | 2024-06-18 08:19 | PM.IMPN ---
Progress Note: A&P Assessment and Plan (1) Seizure: Code(s): R56.9 - Unspecified convulsions Status: Acute (2) Static encephalopathy: Code(s): G93.49 - Other encephalopathy Status: Acute (3) Epilepsy: Qualifiers: Epilepsy type: unspecified Intractability: not intractable Status epilepticus: without status epilepticus Qualified Code(s): G40.909 - Epilepsy, unspecified, not intractable, without status epilepticus Code(s): G40.909 - Epilepsy, unspecified, not intractable, without status epilepticus Status: Chronic (4) Chronic hypertension: Code(s): I10 - Essential (primary) hypertension Status: Chronic (5) Bipolar disorder: Qualifiers: Active/Remission status: remission status unspecified Qualified Code(s): F31.9 - Bipolar disorder, unspecified Code(s): F31.9 - Bipolar disorder, unspecified Status: Chronic Plan (1) Seizure: Code(s): R56.9 - Unspecified convulsions Status: Acute Assessment and Plan: -reported by [facility] home. Had a low grade temp on arrival. Off antibiotics. -continue telemetry -seizure precautions -Home levetiracetam 750 mg, was increased to 1000mg BID, Patient had active seizure in the morning, per nurse report, patient had a tonic seizure about 15 seconds and Provide Ativan 2 mg IV push p.r.n. for active seizure on 06/18 no seizure today. continue current medication, follow-up neurologist recommendation SIRS Patient arrived he was febrile 100.0, elevated b/p: 154/100, elevated heart rate 144, RR 30, WBC 13, UA trace ketones +1 blood, viral PCR is negative Blood culture negative No obvious sign of infection Now resolved (2) Bipolar disorder: Qualifiers: Active/Remission status: remission status unspecified Qualified Code(s): F31.9 - Bipolar disorder, unspecified Code(s): F31.9 - Bipolar disorder, unspecified Status: Chronic Assessment and Plan: -dementia with behavioral disorder -continue home medication quetiapine, BuSpar, Remeron, Zyprexa, p.r.n. Ativan now stable (3) Chronic hypertension: Code(s): I10 - Essential (primary) hypertension Status: Chronic Assessment and Plan: -BP elevated upon arrival 154/100 but has been relatively controlled off med POA c/w amlodipine 5mg daily -monitor vitals q.4 hours Blood pressure is well controlled, continue current blood pressure medication (4) Dementia: Code(s): F03.90 - Unspecified dementia, unspecified severity, without behavioral disturbance, psychotic disturbance, mood disturbance, and anxiety Status: Acute Assessment and Plan: Calm and cooperative Speech difficult to understand the MRI Patient alert, not oriented x3, possible baseline Subjective Date/time seen: 06/18/24 08:19 Interval history: I saw examined the patient today. no seizure reported today. Patient alert, not oriented. Patient denies headache, vision change, palpitation, chest pain, shortness breast, abdomen pain, nausea vomiting diarrhea.. Patient afebrile, blood pressure stable Exam Narrative: GENERAL: Pleasant, in no acute distress. Well-nourished. - EYES: EOMI. Anicteric. - HENT: Moist mucous membranes. - LUNGS: Clear to auscultation bilaterally, no wheezing, rhonchi, or rales. - CARDIOVASCULAR: Regular rate and rhythm. No murmur. No JVD. - ABDOMEN: Soft, non-tender and non-distended. No palpable masses. - EXTREMITIES: No edema. Peripheral pulses 2+. Non-tender. - NEUROLOGIC: No focal neurological deficits. CN II-XII grossly intact. General weakness - PSYCHIATRIC: Awake, Alert and not oriented x 3. Appropriate mood and affect. - SKIN: No rashes or lesions. Warm. - LYMPH: No cervical lymphadenopathy. Objective Data Vital Signs Vital Signs: Vital Signs - 24 hr 06/17/24 10:30 06/17/24 12:00 06/17/24 16:00 Temperature 98.0 F 98.3 F Pulse Rate 87 76 Respiratory
[2024-06-18] MEDS: ENOXAPARIN 40 MG/0.4 ML SYRINGE SUB-Q (08:33)
[2024-06-18] MEDS: QUEtiapine FUMARATE 25 MG TABLET PO ×2 (08:34→19:33)
[2024-06-18] MEDS: QUEtiapine FUMARATE 25 MG TABLET 50 MG PO ×2 (08:34→19:33)
[2024-06-18] MEDS: CYANOCOBALAMIN 1,000 MCG TABLET 1000 MCG PO (08:34)
[2024-06-18] MEDS: HYDROcodone/acetaminophen (*CRX) 5-325 MG TABLET 1 TAB PO ×4 (08:34→19:32)
[2024-06-18] MEDS: ACETAMINOPHEN 325 MG TABLET 650 MG PO ×2 (08:34→19:32)
[2024-06-18] MEDS: busPIRone HCL 10 MG TABLET PO ×3 (08:35→16:00)
[2024-06-18] MEDS: amLODIPine BESYLATE 5 MG TABLET PO (08:35)
[2024-06-18] MEDS: levETIRAcetam 500 MG TABLET 1500 MG PO ×2 (08:35→19:32)
[2024-06-18] MEDS: OLANZapine 5 MG TABLET 15 MG PO (08:35)
[2024-06-18 08:56] LABS: Alanine Aminotransferase 30 U/L (6-50); Albumin Level 4.1 g/dL (3.5-5.1); Alkaline Phosphatase 58 U/L (38-126); Anion Gap 11 mmol/L (4-12); Aspartate Amino Transferase 62 U/L (17-59); Bilirubin,Total 0.8 mg/dL (0.2-1.3); Blood Urea Nitrogen 11 mg/dL (9-20); Calcium 8.8 mg/dL (8.4-10.2); Carbon Dioxide 20 mmol/L (22-30); Chloride 103 mmol/L (98-107); Estimated CRCL calculation 111 ml/min; Estimated Glomerular Filt Rate > 60; Glucose 87 mg/dL (65-110); Potassium 3.9 mmol/L (3.4-5.0); Sodium 134 mmol/L (137-145)
[2024-06-18 10:40] LABS: Hematocrit 38.8 % (42.0-52.0); Hemoglobin 12.6 g/dL (14.0-18.0); Mean Corpuscular HGB Conc 32.5 g/dl (32-36); Mean Corpuscular Hemoglobin 31.5 pg (26-34); Mean Platelet Volume 9.4 fl (7.4-10.4); Platelet Count Result 328 k/mm3 (150-375); Red Cell Distribution Width 13.7 % (11.5-14.5); White Blood Count 10.8 K/mm3 (4.5-10.0)
[2024-06-18 10:48] LABS: Basophils Percent Auto 0.4 % (0.2-1.2); Eosinophils Absolute Auto 0.1 K/mm3 (0-0.3); Eosinophils Percent Auto 0.6 % (0-4.4); Immature Granulocyte Absolute 0.04 K/mm3 (0.00-0.031); Immature Granulocyte Percent A 0.4 % (0-0.5); Lymphocytes Absolute Auto 0.92 K/mm3 (0.9-3.2); Lymphocytes Percent Auto 8.5 % (18.3-44.2); Monocytes Absolute Auto 0.8 K/mm3 (0.1-0.6); Monocytes Percent Auto 7.1 % (2.6-8.5)
[2024-06-18] MEDS: MELATONIN 3 MG TABLET 6 MG PO (19:32)
[2024-06-18] MEDS: MIRTAZAPINE 15 MG TABLET PO (19:33)
[2024-06-19 03:48] VITALS: BP 114/91; PULSE 65; RESP 16; TEMP 36.9; O2SAT 97
[2024-06-19 06:38] LABS: Basophils Percent Auto 0.5 % (0.2-1.2); Eosinophils Absolute Auto 0.2 K/mm3 (0-0.3); Eosinophils Percent Auto 1.8 % (0-4.4); Hematocrit 35.4 % (42.0-52.0); Hemoglobin 11.6 g/dL (14.0-18.0); Immature Granulocyte Absolute 0.03 K/mm3 (0.00-0.031); Immature Granulocyte Percent A 0.4 % (0-0.5); Lymphocytes Absolute Auto 1.79 K/mm3 (0.9-3.2); Lymphocytes Percent Auto 21.9 % (18.3-44.2); Mean Corpuscular HGB Conc 32.8 g/dl (32-36); Mean Corpuscular Hemoglobin 31.6 pg (26-34); Mean Corpuscular Volume 96.5 fl (80-100); Mean Platelet Volume 9.4 fl (7.4-10.4); Monocytes Absolute Auto 0.8 K/mm3 (0.1-0.6); Neutrophils Absolute Auto 5.3 K/mm3 (1.3-6.7); Neutrophils Percent Auto 65.4 % (45.5-73.1); Platelet Count Result 316 k/mm3 (150-375); Red Blood Count 3.67 M/mm3 (4.6-6.20); Red Cell Distribution Width 13.9 % (11.5-14.5); White Blood Count 8.2 K/mm3 (4.5-10.0)
[2024-06-19 06:41] LABS: Alanine Aminotransferase 24 U/L (6-50); Albumin Level 3.4 g/dL (3.5-5.1); Alkaline Phosphatase 52 U/L (38-126); Anion Gap 4 mmol/L (4-12); Aspartate Amino Transferase 37 U/L (17-59); Bilirubin,Total 0.6 mg/dL (0.2-1.3); Blood Urea Nitrogen 13 mg/dL (9-20); Calcium 8.6 mg/dL (8.4-10.2); Carbon Dioxide 28 mmol/L (22-30); Chloride 104 mmol/L (98-107); Estimated CRCL calculation 96 ml/min; Estimated Glomerular Filt Rate > 60; Glucose 90 mg/dL (65-110); Potassium 3.9 mmol/L (3.4-5.0); Sodium 136 mmol/L (137-145)
[2024-06-19] MEDS: levETIRAcetam 500 MG TABLET 1500 MG PO (07:53)
[2024-06-19] MEDS: ENOXAPARIN 40 MG/0.4 ML SYRINGE SUB-Q (07:53)
[2024-06-19] MEDS: OLANZapine 5 MG TABLET 15 MG PO (07:53)
[2024-06-19] MEDS: busPIRone HCL 10 MG TABLET PO (07:54)
[2024-06-19] MEDS: CYANOCOBALAMIN 1,000 MCG TABLET 1000 MCG PO (07:54)
[2024-06-19] MEDS: QUEtiapine FUMARATE 25 MG TABLET PO (07:54)
[2024-06-19] MEDS: ACETAMINOPHEN 325 MG TABLET 650 MG PO (07:54)
[2024-06-19] MEDS: QUEtiapine FUMARATE 25 MG TABLET 50 MG PO (07:54)
[2024-06-19] MEDS: HYDROcodone/acetaminophen (*CRX) 5-325 MG TABLET 1 TAB PO (07:54)
[2024-06-19] MEDS: amLODIPine BESYLATE 5 MG TABLET PO (07:54)
[2024-06-19 08:00] VITALS: BP 130/63; PULSE 63; RESP 16; TEMP 37.1; O2SAT 99
--- NOTE | 2024-06-19 08:23 | PM.IMPN ---
Progress Note: A&P Assessment and Plan (1) Seizure: Code(s): R56.9 - Unspecified convulsions Status: Acute (2) Static encephalopathy: Code(s): G93.49 - Other encephalopathy Status: Acute (3) Epilepsy: Qualifiers: Epilepsy type: unspecified Intractability: not intractable Status epilepticus: without status epilepticus Qualified Code(s): G40.909 - Epilepsy, unspecified, not intractable, without status epilepticus Code(s): G40.909 - Epilepsy, unspecified, not intractable, without status epilepticus Status: Chronic (4) Chronic hypertension: Code(s): I10 - Essential (primary) hypertension Status: Chronic (5) Bipolar disorder: Qualifiers: Active/Remission status: remission status unspecified Qualified Code(s): F31.9 - Bipolar disorder, unspecified Code(s): F31.9 - Bipolar disorder, unspecified Status: Chronic Plan (1) Seizure: Code(s): R56.9 - Unspecified convulsions Status: Acute Assessment and Plan: -reported by [facility] home. Had a low grade temp on arrival. Off antibiotics. -continue telemetry -seizure precautions -Home levetiracetam 750 mg, was increased to 1000mg BID, Patient had active seizure in the morning, per nurse report, patient had a tonic seizure about 15 seconds and Provide Ativan 2 mg IV push p.r.n. for active seizure on 06/18 No seizure in past 48 hour increase Keppra to 1.5 g b.i.d. p.o. per neurologist Neurologist recommended to discharge patient today SIRS Patient arrived he was febrile 100.0, elevated b/p: 154/100, elevated heart rate 144, RR 30, WBC 13, UA trace ketones +1 blood, viral PCR is negative Blood culture negative No obvious sign of infection Now resolved (2) Bipolar disorder: Qualifiers: Active/Remission status: remission status unspecified Qualified Code(s): F31.9 - Bipolar disorder, unspecified Code(s): F31.9 - Bipolar disorder, unspecified Status: Chronic Assessment and Plan: -dementia with behavioral disorder -continue home medication quetiapine, BuSpar, Remeron, Zyprexa, p.r.n. Ativan now stable (3) Chronic hypertension: Code(s): I10 - Essential (primary) hypertension Status: Chronic Assessment and Plan: -BP elevated upon arrival 154/100 but has been relatively controlled off med POA c/w amlodipine 5mg daily -monitor vitals q.4 hours Blood pressure is well controlled, continue current blood pressure medication (4) Dementia: Code(s): F03.90 - Unspecified dementia, unspecified severity, without behavioral disturbance, psychotic disturbance, mood disturbance, and anxiety Status: Acute Assessment and Plan: Calm and cooperative Speech difficult to understand the MRI Patient alert, not oriented x3, possible baseline Subjective Date/time seen: 06/19/24 08:23 Interval history: I saw examined the patient today. no new issues or events overnight, no seizure in past 48 hours. Patient alert, not oriented. Patient denies headache, vision change, palpitation, chest pain, shortness breast, abdomen pain, nausea vomiting diarrhea.. Patient afebrile, blood pressure stable Exam Narrative: GENERAL: Pleasant, in no acute distress. Well-nourished. - EYES: EOMI. Anicteric. - HENT: Moist mucous membranes. - LUNGS: Clear to auscultation bilaterally, no wheezing, rhonchi, or rales. - CARDIOVASCULAR: Regular rate and rhythm. No murmur. No JVD. - ABDOMEN: Soft, non-tender and non-distended. No palpable masses. - EXTREMITIES: No edema. Peripheral pulses 2+. Non-tender. - NEUROLOGIC: No focal neurological deficits. CN II-XII grossly intact. General weakness - PSYCHIATRIC: Awake, Alert and not oriented x 3. Appropriate mood and affect. - SKIN: No rashes or lesions. Warm. - LYMPH: No cervical lymphadenopathy. Objective Data Vital Signs Vital Signs: Vital Signs - 24 hr 06/18/24 08:35 06/18/24
--- NOTE | 2024-06-19 08:23 | PM.DS ---
DS: Admitting Diagnosis Discharge Date 06/19 Admitting Diagnosis (1) Seizure: Code(s): R56.9 - Unspecified convulsions Status: Acute (2) Static encephalopathy: Code(s): G93.49 - Other encephalopathy Status: Acute (3) Epilepsy: Qualifiers: Epilepsy type: unspecified Intractability: not intractable Status epilepticus: without status epilepticus Qualified Code(s): G40.909 - Epilepsy, unspecified, not intractable, without status epilepticus Code(s): G40.909 - Epilepsy, unspecified, not intractable, without status epilepticus Status: Chronic (4) Chronic hypertension: Code(s): I10 - Essential (primary) hypertension Status: Chronic (5) Bipolar disorder: Qualifiers: Active/Remission status: remission status unspecified Qualified Code(s): F31.9 - Bipolar disorder, unspecified Code(s): F31.9 - Bipolar disorder, unspecified Status: Chronic DS: Discharge Diagnosis Discharge Diagnosis (1) Seizure: Code(s): R56.9 - Unspecified convulsions Status: Acute (2) Static encephalopathy: Code(s): G93.49 - Other encephalopathy Status: Acute (3) Epilepsy: Qualifiers: Epilepsy type: unspecified Intractability: not intractable Status epilepticus: without status epilepticus Qualified Code(s): G40.909 - Epilepsy, unspecified, not intractable, without status epilepticus Code(s): G40.909 - Epilepsy, unspecified, not intractable, without status epilepticus Status: Chronic (4) Chronic hypertension: Code(s): I10 - Essential (primary) hypertension Status: Chronic (5) Bipolar disorder: Qualifiers: Active/Remission status: remission status unspecified Qualified Code(s): F31.9 - Bipolar disorder, unspecified Code(s): F31.9 - Bipolar disorder, unspecified Status: Chronic DS: Summary Hospital Course Hospital Course: Per H&P, ' 68-year-old male with a PMHx: of epilepsy, dementia with behavioral disturbances, presented to the ER via EMS with complaints made by staff that patient had two witnessed episodes of seizure-like activity. Patient is a poor historian, due to speech and cognitive decline in function he is not able to provide reliable HPI. In the ED: Patient arrived he was febrile 100.0, elevated b/p: 154/100, elevated heart rate 144, RR 30, WBC 13, UA trace ketones +1 blood, viral PCR is negative, NS IV 2 L, Keppra IV 1000 mg, lorazepam 1 mg IVP The following medical issues have been addressed during hospitalization (1) Seizure: Code(s): R56.9 - Unspecified convulsions Status: Acute Assessment and Plan: -reported by [facility] home. Had a low grade temp on arrival. Off antibiotics. -continue telemetry -seizure precautions -Home levetiracetam 750 mg, was increased to 1000mg BID, Patient had active seizure in the morning, per nurse report, patient had a tonic seizure about 15 seconds and Provide Ativan 2 mg IV push p.r.n. for active seizure on 06/18 No seizure in past 48 hour increase Keppra to 1.5 g b.i.d. p.o. per neurologist Neurologist recommended to discharge patient today SIRS Patient arrived he was febrile 100.0, elevated b/p: 154/100, elevated heart rate 144, RR 30, WBC 13, UA trace ketones +1 blood, viral PCR is negative Blood culture negative No obvious sign of infection Now resolved (2) Bipolar disorder: Qualifiers: Active/Remission status: remission status unspecified Qualified Code(s): F31.9 - Bipolar disorder, unspecified Code(s): F31.9 - Bipolar disorder, unspecified Status: Chronic Assessment and Plan: -dementia with behavioral disorder -continue home medication quetiapine, BuSpar, Remeron, Zyprexa, p.r.n. Ativan now stable (3) Chronic hypertension: Code(s): I10 - Essential (primary) hypertension Status: Chronic Assessment and Plan: -BP elevated upon arrival 154/1
--- NOTE | 2024-06-19 09:21 | PC.NURSE ---
Per Dr. Blancas patient is cleared per Neuro to discharge. Hospitalist made aware.
== END 2024-06-19 11:05 | disposition other institution (70) | DRG 101 ==
LOC: ANHED 11:54 → ANH3MEDSUR 16:27
PROVIDERS: Nurse Practitioner; Admitting Provider Family Medicine; Emergency Provider Emergency Medicine; PCP Family Medicine; Visit Provider Hospitalist
DX: G40.909 Epilepsy, unspecified, not intractable, without status epilepticus (principal); G93.49 Other encephalopathy; R65.10 Systemic inflammatory response syndrome (SIRS) of non-infectious origin without acute organ dysfunction; I10 Essential (primary) hypertension; J45.909 Unspecified asthma, uncomplicated; R41.841 Cognitive communication deficit; R47.1 Dysarthria and anarthria; F03.90 Unspecified dementia, unspecified severity, without behavioral disturbance, psychotic disturbance, mood disturbance, and anxiety; F31.9 Bipolar disorder, unspecified; Z20.822 Contact with and (suspected) exposure to COVID-19
CPT/HCPCS: 36415; 70450; 71045; 80053; 81001; 82948; 83605; 85025; 85610; 85730; 86140; 87040; 87637; 96361; 96365; 96372; 96375; 96376; 97110; 97116; 97161; 99285; A9270; G0378; J1650; J1953; J2060; J7030

== ENCOUNTER 2024-12-27 10:37 | Emergency (ER) | payer MEDICARE, MEDICAID, SELFPAY ==
[2024-12-27] VITALS (15 sets, daily range): BP systolic 110–167; BP diastolic 80–99; PULSE 90–106; RESP 14–23; TEMP 36.5–36.7; O2SAT 95–100
--- NOTE | ~2024-12-27 | CT_ITS ---
EXAMINATION: CT cervical spine wo con DATE: 12/27/2024 11:35 INDICATION: Seizure. TECHNIQUE: Computed tomography (CT) of the cervical spine was performed without intravenous contrast. Automated exposure control and iterative reconstruction technique were employed. The dose-length pro duct was 204.74 mGy-cm. COMPARISON: CT cervical spine 10/31/24 FINDINGS: There is a left otomastoid effusion. There are erosions of the ossicles on the left, consis tent with chronic otitis media. There is 5 degrees dextrocurvature of cervical spine. Vertebral body heights are normal. There is mildly decreased disc height at C4-C5 and moderately decreased disc heig ht at C5-C6. The following disc levels are specifically discussed: C2-C3: There is no uncovertebral joint osteoarthritis. There is mild bilateral facet joint osteoarthr itis. There is no neural foraminal stenosis. There is no central canal stenosis. C3-C4: There is severe right and mild left uncovertebral joint osteoarthritis. There is mild bilatera l facet joint osteoarthritis. There is mild right neural foraminal stenosis. There is mild central ca nal stenosis. C4-C5: There is mild left uncovertebral joint osteoarthritis. There is mild right and moderate left f acet joint osteoarthritis. There is no neural foraminal stenosis. There is no central canal stenosis. C5-C6: There is mild right and severe left uncovertebral joint osteoarthritis. There is mild left fac et joint osteoarthritis. There is mild bilateral neural foraminal stenosis. There is mild central can al stenosis. C6-C7: There is mild left uncovertebral joint osteoarthritis. There is mild left facet joint osteoart hritis. There is no neural foraminal stenosis. There is no central canal stenosis. C7-T1: There is no uncovertebral joint osteoarthritis. There is mild bilateral facet joint osteoarthr itis. There is no neural foraminal stenosis. There is no central canal stenosis. IMPRESSION: 1. No fracture. 2. Moderate cervical spondylosis. 3. Left-sided chronic otitis media. Reviewed, dictated and finalized at location A. TENANCE AND ENGINEERING MANAGER
--- NOTE | ~2024-12-27 | XR_ITS ---
XR hip BI 2V w AP pelvis Ordering provider: Stanley Cole MD History: . fall . Comparison: None. FINDINGS: BONES: No acute fracture or dislocation. HIP JOINT SPACES: Mild osteoarthritic changes of both hips. SACROILIAC JOINT SPACES/LUMBAR SPINE: The sacroiliac joint spaces are normal. Mild degenerative hills es of the visualized lower lumbar spine. PUBIC SYMPHYSIS: Normal. SOFT TISSUES: Normal. IMPRESSION: No acute osseous abnormality of the bilateral hips and pelvis. Reviewed, dictated and finalized at location A. ER [employer]
--- NOTE | ~2024-12-27 | CT_ITS ---
EXAMINATION: CT brain wo con DATE: 12/27/2024 11:35 INDICATION: Seizure. TECHNIQUE: Computed tomography (CT) of the head was performed without intravenous contrast. The mA wa s adjusted according to patient size. Iterative reconstruction technique was employed. The dose-lengt h product was 1210.67 mGy-cm. COMPARISON: Head CT 10/31/2024 FINDINGS: There is chronic volume loss of right temporal parietal occipital region. There is a small old infarct in right frontoparietal region. There is no intracranial hemorrhage, acute infarction, or abnormal intracranial mass lesion. There is ex vacuo dilatation of right lateral ventricle. The orbi ts are normal. There is mild mucosal thickening in the paranasal sinuses. There is a left mastoid eff usion. There is a right-sided scalp soft tissue swelling. IMPRESSION: 1. Chronic volume loss of right temporal parietal occipital region. 2. 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 Reviewed, dictated and finalized at location A. S AND EVENTS COORDINATOR
--- NOTE | 2024-12-27 10:45 | ECG_ITS ---
Test Date: 2024-12-27 11:07:39 Measurements Intervals [place] Rate: 107 P: 56 VT: 168 QRS: 45 QRSD: 98 T: 72 QT: 309 QTc: 412 Interpretive Statements SINUS TACHYCARDIA nondiagnostic inferior Q-waves BORDERLINE ECG No previous ECG available for comparison Electronically Signed On 12-28-2024 15:16:22 AIR POLLUTION COMPLIANCE INSPECTOR by Manish Hicks M.D.
--- NOTE | 2024-12-27 10:49 | ED.GENADULT ---
HPI - General Adult General Chief complaint: Seizure Stated complaint: seizure Time Seen by Provider: 12/27/24 10:45 History of Present Illness HPI narrative: 69-year-old male with history of previous traumatic subdural hemorrhage, epilepsy, chronic hypertension, and chronic dysarthria presents to. emergency department after having 2 seizures at his care facility. Patient does take Keppra and patient was treated with his seizure medications at the facility. Upon arrival emergency department patient is at his baseline and initially denied any complaints. Patient did arrive in a C-collar. Related Data Home Medications ?Medication ?Instructions ?Recorded ?Confirmed ?Last Taken ?Type buspirone 10 mg tablet 10 mg PO TID bipolar 02/14/21 06/15/24 Unknown History levetiracetam 750 mg tablet 750 mg PO Q12H 02/14/21 06/15/24 Unknown History melatonin 3 mg tablet 6 mg PO HS 02/14/21 06/15/24 Unknown History olanzapine 15 mg tablet 15 mg PO DAILY 02/14/21 06/15/24 Unknown History mecobalamin (vitamin B12) 1,000 1,000 mcg PO DAILY 09/05/22 06/15/24 Unknown History mcg chewable tablet mirtazapine 15 mg tablet 15 mg PO HS 09/05/22 06/15/24 Unknown History acetaminophen 500 mg tablet 1,000 mg PO Q12H PRN Pain 06/15/24 06/15/24 Unknown History acetaminophen 650 mg 650 mg PO Q12H 06/15/24 06/15/24 Unknown History tablet,extended release alprazolam 0.5 mg tablet 0.5 mg PO Q6H 06/15/24 06/15/24 Unknown History cholecalciferol (vitamin D3) 1,250 1,250 mcg PO WEEKLY 06/15/24 06/15/24 06/10/24 09:00 History mcg (50,000 unit) capsule hydrocodone 5 mg-acetaminophen 325 1 tablet PO Q6H 06/15/24 06/15/24 Unknown History mg tablet quetiapine 25 mg tablet 25 mg PO Q12H 06/15/24 06/15/24 Unknown History quetiapine 50 mg tablet 50 mg PO Q12H 06/15/24 06/15/24 Unknown History Allergies Allergy/AdvReac Type Severity Reaction Status Date / Time No Known Allergies Allergy Verified 10/31/24 17:13 Review of Systems Review of Systems: All systems reviewed & are unremarkable except as noted in HPI and below PMFSH Past Medical History Medical History Static encephalopathy Cognitive communication deficit Umbilical hernia Hypertension Cerebral edema Closed fracture of left clavicle Asthma Bipolar disorder Insomnia Dysarthria Chronic hypertension Epilepsy Traumatic subdural hemorrhage Surgical History Surgical History History of inguinal hernia repair Family History Family History Other Family history unknown Social History Social History Social History: Surrogate medical decision maker: Darnell Workman, friend. Emergency contact: Paigeclaire AcevesMachuca, niece. Code status: Do not resuscitate. Smoking status: Unknown if ever smoked Alcohol intake: current Drinks per week: 1 Substance use: unknown Lack of Transportation: No Lack of Food: Never True Current Housing: I Have Housing Concerned About Future Housing: No Difficulty Paying Gas/Electric Bills: No Difficulty Paying for Meds: No Currently Unemployed: No Education: Master's Degree or Higher Difficulty w/ Childcare or Family Care: No Living arrangements: longterm Additional living arrangements comments: Resident at [facility]. 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 Spiritual care concerns: No Exam Narrative: APPEARANCE: Well appearing, no pain, no distress, well-nourished. HEAD: normocephalic, atraumatic. EYES: PERRLA/EOMI, conjunctivae clear. NOSE: Normal no drainage EARS:TMS clear with good light reflex. THROAT: Pharynx clear, no exudate. NECK: Supple. No adenopathy, no masses. RESPIRATORY: Airway patent, respirations nonlabored. Clear to auscultation bilaterally, no rales, rhonchi, wheezing. CARDIOVASCULAR: Regular rate and rhythm without murmurs rubs or gallops. ABDOMINAL: Soft, nontender, nondistended, normal bowel sounds MUSCULOSKELETAL: Moves all extremities. Strength/ROM intact, No edema, No calf tenderness. NEURO: Alert and at his baseline SKIN: Warm, dry. Normal Color Course Vital Signs Vital signs: Vital Signs Pulse Rate 106 H 12/27/24 10:50 Blood Pressure 125/91 H 12/27/24 10:50 Pulse Oximetry 97 12/27/24 10:50 Temperature 98.1 F 12/27/24 16:21 Pulse Rate 90 12/27/24 16:21 Respiratory Rate 20 12/27/24 16:21 Blood Pressure 154/97 H 12/27/24 16:21 Pulse Oximetry 97 12/27/24 16:21 Oxygen Delivery Room Air 12/27/24 11:20 Medical Decision Making MDM Narrative Medical decision making narrative: 6-year-old male presents emergency department for evaluation for seizure. Patient reportedly had a short seizure and EMS was called. When EMS arrived they suspected he had a 2nd seizure and he was treated with 5 of Versed. Patient was somnolent upon arrival to the emergency department but return to his baseline. Patient is alert. Patient's initial lactic acid was elevated this did improve with rehydration. Patient was negative for influenza RSV and for COVID. Head and neck CT were negative. Does have epilepsy and does have intermittent seizures. No medication changes were made. No evidence of underlying infection was noted. Patient will be discharged back to his care facility. Prior to being discharged to his facility patient did have a fall from the bed where he landed on his bottom. Patient did complain of some right hip pain x-rays were negative for acute fracture dislocation and patient was well-appearing. Differential Diagnosis Differential Diagnosis: COVID, RSV, influenza, intracranial injury, cervical spine fracture, hip fracture, pelvic fracture Vital Signs Vital Signs: Vital Signs Pulse Rate 106 H 12/27/24 10:50 Blood Pressure 125/91 H 12/27/24 10:50 Pulse Oximetry 97 12/27/24 10:50 Temperature 98.1 F 12/27/24 16:21 Pulse Rate 90 12/27/24 16:21 Respiratory Rate 20 12/27/24 16:21 Blood Pressure 154/97 H 12/27/24 16:21 Pulse Oximetry 97 12/27/24 16:21 Oxygen Delivery Room Air 12/27/24 11:20 Lab Data Lab results reviewed: Yes I reviewed the patient's lab results. 12/27/24 11:14 12/27/24 11:14 Labs: Lab Results 12/27/24 12/27/24 Range/Units 11:14 13:52 WBC 8.7 (4.5-10.0) K/mm3 RBC 4.20 L (4.6-6.20) M/mm3 Hgb 13.3 L (14.0-18.0) g/dL Hct 40.0 L (42.0-52.0) % MCV 95.2 (80-100) fl MCH 31.7 (26-34) pg MCHC 33.3 (32-36) g/dl RDW 13.9 (11.5-14.5) % Plt Count 430 H (150-375) k/mm3 MPV 9.3 (7.4-10.4) fl Immature Gran % (Auto) 0.3 (0-0.5) % Neut % (Auto) 81.6 H (45.5-73.1) % Lymph % (Auto) 10.5 L (18.3-44.2) % Allen % (Auto) 7.0 (2.6-8.5) % Eos % (Auto) 0.1 (0-4.4) % Baso % (Auto) 0.5 (0.2-1.2) % Lymph # (Auto) 0.91 (0.9-3.2) K/mm3 Allen # (Auto) 0.6 (0.1-0.6) K/mm3 Eos # (Auto) 0.0 (0-0.3) K/mm3 Baso # (Auto) 0.0 (0.0-0.1) K/mm3 Abs Immat Gran (auto) 0.03 (0.00-0.031) K/mm3 Absolute Neuts (auto) 7.1 H (1.3-6.7) K/mm3 Absolute Nucleated RBC 0.000 (0.0-0.012) K/mm3 Nucleated RBC % 0.0 (0.0-0.2) % PT 13.7 (11.1-14.7) Seconds INR 1.0 APTT 24.7 (22.3-36.8) Seconds Sodium 138 (137-145) mmol/L Potassium 3.9 (3.4-5.0) mmol/L Chloride 101 (98-107) mmol/L Carbon Dioxide 18 L (22-30) mmol/L Anion Gap 19 H (4-12) mmol/L BUN 13 (9-20) mg/dL Creatinine 0.71 (0.7-1.3) mg/dL Estim Creat Clear Calc Not Reportable Estimated GFR > 60 (59 - ) Glucose 95 (65-110) mg/dL Lactic Acid 6.9 H* 1.2 (0.7-2.0) mmol/L Calcium 9.7 (8.4-10.2) mg/dL Total Bilirubin 0.5 (0.2-1.3) mg/dL AST 39 (17-59) U/L ALT 53 H (6-50) U/L Alkaline Phosphatase 89 (38-126) U/L Total Protein 7.0 (6.3-8.2) g/dL Albumin 4.8 (3.5-5.1) g/dL Lipase 46 (23-300) U/L Urine Color Yellow (Yellow) Urine Appearance Clear (Clear) Urine pH 7.0 (5.0-9.0) Ur Specific [place] 1.012 (1.001-1.035) Urine Protein Negative (Negative) mg/dL Urine Glucose (UA) Negative (Negative) mg/dL Urine Ketones Negative (Negative) mg/dL Ur Blood (Man) Negative (Negative) Urine Nitrate Negative (Negative) Urine Bilirubin Negative (Negative) Urine Urobilinogen 0.2 (<2.0) mg/dL Leukocyte Esterase Rfl Negative (Negative) ALETHEA/UL Influenza A (RT-PCR) Negative (Negative) Influenza B (RT-PCR) Negative (Negative) RSV (RT-PCR) Negative (Negative) SARS-CoV-2 RNA (RT-PCR) Negative (Negative) Imaging Data Radiologist's impression: Impressions Head CT 12/27/24 11:35 IMPRESSION: 1. Chronic volume loss of right temporal parietal occipital region. 2. 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 Cervical Spine CT 12/27/24 11:57 IMPRESSION: 1. No fracture. 2. Moderate cervical spondylosis. 3. Left-sided chronic otitis media. Hip/Pelvis X-Ray 12/27/24 15:32 IMPRESSION: No acute osseous abnormality of the bilateral hips and pelvis. Discharge Plan Discharge Clinical Impression: Breakthrough seizure Patient Disposition: Home, Self-Care Condition: Stable Instructions: Antibiotic Form, Epilepsy (ED) Additional Instructions: Patient will still require his evening doses his antiepileptic medications. Patient Language: [place] Leonean Prescriptions: No Action mirtazapine 15 mg tablet 15 mg PO HS mecobalamin (vitamin B12) 1,000 mcg Tablet,Chewable 1,000 mcg PO DAILY amlodipine [Norvasc] 10 mg tablet 10 mg PO DAILY Qty: 30 0RF quetiapine 25 mg tablet 25 mg PO Q12H quetiapine 50 mg tablet 50 mg PO Q12H hydrocodone-acetaminophen 5-325 mg tablet 1 tablet PO Q6H acetaminophen 500 mg Tablet 1,000 mg PO Q12H PRN (Reason: Pain) alprazolam 0.5 mg tablet 0.5 mg PO Q6H cholecalciferol (vitamin D3) 1,250 mcg (50,000 unit) Capsule 1,250 mcg PO WEEKLY Rx Instructions: takes on Monday acetaminophen 650 mg Tablet Extended Release 650 mg PO Q12H levetiracetam [Keppra] 500 mg Tablet 1,500 mg PO Q12HR Qty: 180 0RF hydrocodone-acetaminophen 5-325 mg Tablet 1 tablet PO Q6H PRN (Reason: Pain Rated 4-6) Qty: 15 0RF olanzapine 15 mg tablet 15 mg PO DAILY levetiracetam 750 mg tablet 750 mg PO Q12H melatonin 3 mg Tablet 6 mg PO HS buspirone 10 mg tablet 10 mg PO TID Follow-up/Referrals: Marlene,Gema Phan MD [Primary Care Provider] -
[2024-12-27 11:24] LABS: Add Urine Microscopic? NO; Appearance Urine Clear (Clear); Bilirubin Urine Negative (Negative); Blood Urine Negative (Negative); Color Urine Yellow (Yellow); Glucose Urine UA Negative (Negative); Ketones Urine Negative (Negative); Leukocyte Esterase Ur Negative LEU/UL (Negative); Nitrate Urine Negative (Negative); Protein Urine Negative (Negative); Specific Grav Ur 1.012 (1.001-1.035); Urobilinogen Urine 0.2 mg/dL (<2.0)
[2024-12-27 11:25] LABS: Basophils Percent Auto 0.5 % (0.2-1.2); Eosinophils Percent Auto 0.1 % (0-4.4); Hemoglobin 13.3 g/dL (14.0-18.0); Immature Granulocyte Absolute 0.03 K/mm3 (0.00-0.031); Immature Granulocyte Percent A 0.3 % (0-0.5); Lymphocytes Absolute Auto 0.91 K/mm3 (0.9-3.2); Lymphocytes Percent Auto 10.5 % (18.3-44.2); Mean Corpuscular HGB Conc 33.3 g/dl (32-36); Mean Corpuscular Hemoglobin 31.7 pg (26-34); Mean Corpuscular Volume 95.2 fl (80-100); Mean Platelet Volume 9.3 fl (7.4-10.4); Monocytes Absolute Auto 0.6 K/mm3 (0.1-0.6); Neutrophils Absolute Auto 7.1 K/mm3 (1.3-6.7); Neutrophils Percent Auto 81.6 % (45.5-73.1); Platelet Count Result 430 k/mm3 (150-375); Red Cell Distribution Width 13.9 % (11.5-14.5); White Blood Count 8.7 K/mm3 (4.5-10.0)
[2024-12-27 11:37] LABS: Lactic Acid Reflex 6.9 mmol/L (0.7-2.0)
[2024-12-27 11:38] LABS: Albumin Level 4.8 g/dL (3.5-5.1); Alkaline Phosphatase 89 U/L (38-126); Anion Gap 19 mmol/L (4-12); Aspartate Amino Transferase 39 U/L (17-59); Bilirubin,Total 0.5 mg/dL (0.2-1.3); Blood Urea Nitrogen 13 mg/dL (9-20); Calcium 9.7 mg/dL (8.4-10.2); Carbon Dioxide 18 mmol/L (22-30); Chloride 101 mmol/L (98-107); Estimated Glomerular Filt Rate > 60; Glucose 95 mg/dL (65-110); Lipase 46 U/L (23-300); Potassium 3.9 mmol/L (3.4-5.0); Sodium 138 mmol/L (137-145)
[2024-12-27 11:45] LABS: Alanine Aminotransferase 53 U/L (6-50)
[2024-12-27 11:47] LABS: Prothrombin Time 13.7 Seconds (11.1-14.7)
[2024-12-27 11:48] LABS: Partial Thromboplastin Time 24.7 Seconds (22.3-36.8)
[2024-12-27 12:01] LABS: Influenza A QL RT-PCR Negative (Negative); Influenza B QL RT-PCR Negative (Negative); RSV RNA, RT-PCR Negative (Negative); SARS-CoV-2 RNA PCR Negative (Negative)
[2024-12-27] MEDS: LACTATED RINGERS 1,000 ML 999 ML IV CONT (12:16)
[2024-12-27] MEDS: HYDROcodone/acetaminophen (*CRX) 5-325 MG TABLET 1 TAB PO (12:57)
[2024-12-27 14:17] LABS: Lactic Acid Reflex 1.2 mmol/L (0.7-2.0)
[2024-12-27 14:22] LABS: Reflex Lactic Acid Yes or No Add Lactic
== END 2024-12-27 16:54 ==
PROVIDERS: Emergency Provider Emergency Medicine; PCP Family Medicine
DX: G40.909 Epilepsy, unspecified, not intractable, without status epilepticus (principal); Z20.822 Contact with and (suspected) exposure to COVID-19; I10 Essential (primary) hypertension; G93.49 Other encephalopathy; J45.909 Unspecified asthma, uncomplicated; R41.841 Cognitive communication deficit; R47.1 Dysarthria and anarthria; F31.9 Bipolar disorder, unspecified; Z66 Do not resuscitate; Z79.899 Other long term (current) drug therapy; M47.812 Spondylosis without myelopathy or radiculopathy, cervical region; H66.92 Otitis media, unspecified, left ear; R00.0 Tachycardia, unspecified; R94.31 Abnormal electrocardiogram [ECG] [EKG]
CPT/HCPCS: 36415; 70450; 72125; 73521; 80053; 81003; 83605; 83690; 85025; 85610; 85730; 87637; 93005; 96360; 99284; A9270; J7120